=== PATIENT | female | born 1945 | race Caucasian/White ===

== ENCOUNTER 2019-10-21 09:09 | Outpatient (CLI) | payer MEDICARE, SELFPAY ==
[2019-10-21 13:45] LABS: Alanine Aminotransferase 17 U/L (4-35); Albumin Level 4.4 g/dL (3.5-5.1); Alkaline Phosphatase 75 U/L (38-126); Aspartate Amino Transferase 24 U/L (14-36); Bilirubin,Total 0.5 mg/dL (0.2-1.3); Blood Urea Nitrogen 23 mg/dL (7-17); Carbon Dioxide 29 mmol/L (22-30); Chloride 104 mmol/L (98-107); Cholesterol 119 mg/dL (0-200); Estimated Glomerular Filt Rate > 60; Glucose 95 mg/dL (65-105); HDL Direct 60 mg/dL; Potassium 4.5 mmol/L (3.4-5.0); Sodium 141 mmol/L (137-145); Triglycerides 92 mg/dL (<150)
[2019-10-21 13:56] LABS: LDL Cholesterol Direct 58 mg/dL
== END 2019-10-21 09:10 | disposition home or self-care (01) ==
LOC: ANHWCLAB 09:13
PROVIDERS: PCP Internal Medicine; Visit Provider Nurse Practitioner
DX: E78.5 Hyperlipidemia, unspecified (principal)
CPT/HCPCS: 36415; 80053; 80061

== ENCOUNTER → 2019-10-25 14:43 | Outpatient (CLI) | payer MEDICARE, SELFPAY ==
--- NOTE | ~2019-10-25 | CT_ITS ---
EXAMINATION: CT hip LT wo con DATE: 10/25/2019 15:09 INDICATION: Left hip pain. TECHNIQUE: Computed tomography (CT) of the left hip was performed without intravenous contrast. Autom ated exposure control and iterative reconstruction technique were employed. The dose-length product w as 186.30 mGy-cm. COMPARISON: Left hip radiographs 10/15/2019 FINDINGS: Bone alignment is normal. No fracture. There is advanced left hip joint osteoarthritis incl uding flattening of superior aspect of the femoral head. There is a surgical clip in left pelvis. IMPRESSION: 1. Advanced left hip osteoarthritis. Reviewed, dictated and finalized at location A.
== END ==
PROVIDERS: Visit Provider Orthopaedic Surgery
DX: M16.12 Unilateral primary osteoarthritis, left hip (principal)
CPT/HCPCS: 73700

== ENCOUNTER 2020-01-25 13:52 | Outpatient (CLI) | payer MEDICARE, SELFPAY ==
[2020-01-25 15:07] LABS: Basophils Percent Auto 0.5 % (0.2-1.2); Eosinophils Absolute Auto 0.1 K/mm3 (0-0.3); Eosinophils Percent Auto 1.3 % (0-4.4); Hematocrit 43.3 % (37.0-47.0); Hemoglobin 13.9 g/dL (12.0-15.0); Immature Granulocyte Absolute 0.02 K/mm3 (0.00-0.031); Immature Granulocyte Percent A 0.3 % (0-0.5); Lymphocytes Absolute Auto 2.06 K/mm3 (0.9-3.2); Lymphocytes Percent Auto 26.3 % (18.3-44.2); Mean Corpuscular HGB Conc 32.1 g/dl (32-36); Mean Corpuscular Hemoglobin 28.6 pg (26-34); Mean Corpuscular Volume 89.1 fl (80-100); Mean Platelet Volume 8.9 fl (7.4-10.4); Monocytes Absolute Auto 0.5 K/mm3 (0.1-0.6); Monocytes Percent Auto 6.5 % (2.6-8.5); Neutrophils Absolute Auto 5.1 K/mm3 (1.3-6.7); Neutrophils Percent Auto 65.1 % (45.5-73.1); Platelet Count Result 200 k/mm3 (150-375); Red Blood Count 4.86 M/mm3 (4.2-5.4); Red Cell Distribution Width 14.6 % (11.5-14.5); White Blood Count 7.8 K/mm3 (4.5-10.0)
[2020-01-25 15:14] LABS: Prothrombin Time 12.9 Seconds (11.1-14.7)
[2020-01-25 15:15] LABS: Partial Thromboplastin Time 29.2 SECONDS (22.3-36.8)
[2020-01-25 15:16] LABS: Albumin Level 4.8 g/dL (3.5-5.1); Blood Urea Nitrogen 22 mg/dL (7-17); Calcium 9.8 mg/dL (8.4-10.2); Carbon Dioxide 27 mmol/L (22-30); Chloride 104 mmol/L (98-107); Estimated Glomerular Filt Rate 54; Glucose 96 mg/dL (65-105); Potassium 3.7 mmol/L (3.4-5.0); Sodium 137 mmol/L (137-145)
[2020-01-25 15:21] LABS: Urine Cotinine NEGATIVE
[2020-01-25 15:30] LABS: Add Urine Microscopic? YES; Appearance Urine Clear (Clear); Bacteria Urine Trace /hpf; Bilirubin Urine Negative (Negative); Color Urine Yellow (Yellow); Glucose Urine UA Negative (Negative); Ketones Urine Trace mg/dL (Negative); Leukocyte Esterase Ur 1+ LEU/UL (Negative); Mucus Urine Rare /lpf; Nitrate Urine Positive (Negative); Protein Urine 1+ mg/dL (Negative); RBC Urine 0-2 /hpf (0-2); Specific Grav Ur 1.024 (1.001-1.035); Squamous Epithelial Cell Urine Moderate /hpf (Few); Urobilinogen Urine Negative mg/dL (<2.0); WBC Urine 31-50 /hpf
[2020-01-25 15:35] LABS: Blood Urine Negative (Negative)
[2020-01-25 15:53] LABS: Hemoglobin A1C 5.7 % (<5.7)
== END 2020-01-25 13:53 | disposition home or self-care (01) ==
LOC: ANHSURGERY 13:56
PROVIDERS: PCP Internal Medicine; Visit Provider Orthopaedic Surgery
DX: M16.12 Unilateral primary osteoarthritis, left hip (principal); Z01.812 Encounter for preprocedural laboratory examination
CPT/HCPCS: 36415; 80048; 80307; 81001; 82040; 83036; 85025; 85610; 85730; 86850; 86900; 86901; 87077; 87081; 87086; 87088; 87186

== ENCOUNTER 2020-01-31 00:25 | Outpatient (CLI) | payer MEDICARE, SELFPAY ==
[2020-01-31 17:00] LABS: SARS-CoV-2 RNA PCR Negative
== END 2020-01-31 00:26 | disposition home or self-care (01) ==
LOC: ANHCOVIDDT 00:26
PROVIDERS: PCP Internal Medicine; Visit Provider Orthopaedic Surgery
DX: Z01.812 Encounter for preprocedural laboratory examination (principal); Z11.59 Encounter for screening for other viral diseases
CPT/HCPCS: 87635; C9803; U0003

== ENCOUNTER 2020-02-03 14:44 | Inpatient (IN) | payer MEDICARE, SELFPAY ==
[2020-01-25 14:13] VITALS: PULSE 102; TEMP 36.6; O2SAT 98
[2020-01-25 14:15] VITALS: BMI 31.2
[2020-02-02] VITALS (15 sets, daily range): BP systolic 113–161; BP diastolic 52–80; PULSE 79–109; RESP 12–20; TEMP 36.1–36.7; O2SAT 97–100; BMI 37.0
[2020-02-02] MEDS: LACTATED RINGERS 1,000 ML 30 ML IV CONT ×2 (06:30→14:03)
[2020-02-02] MEDS: IBUPROFEN IV 800 MG/200 ML 800 MG/200 ML BAG 400 MG IVPB (06:39)
--- NOTE | 2020-02-02 06:49 | P.PNAN_ITS ---
Anes - Initial Pre Proc Eval Procedure: Operation Date: 02/02/20 07:30 Proposed Procedures p Left Total Hip Arthroplasty - Benton Zuniga MD Date/Time: 02/02/20 06:49 Surgeon: Benton Zuniga MD Pre Op Diagnosis: Left Hip DJD Patient Data Age: 74 Gender: F Height: 1.6 m Weight: 80 kg Last Vital Signs Temp 36.6 C 01/25/20 14:13 Pulse 102 H 01/25/20 14:13 Pulse Ox 98 01/25/20 14:13 Allergies Allergy/AdvReac Type Severity Reaction Status Date / Time cephalexin Allergy Unknown Rash Verified 01/28/20 12:35 Cephalosporins Allergy Unknown RASH Verified 01/28/20 12:35 Home Medications Medication Instructions Recorded Confirmed Type atorvastatin 80 mg tablet 80 mg PO DAILY #90 tablet 08/26/19 01/25/20 Rx calcium carbonate 600 mg(1,500 1 tablet PO DAILY 09/06/19 01/25/20 History mg)-vitamin D3 800 unit chewable tablet prednisolone acetate 1 % eye 1 drop EACH EYE DAILY ml 09/08/19 01/25/20 History drops,suspension cholecalciferol (vitamin D3) 25 mcg PO DAILY 01/25/20 01/25/20 History omega 8-qvv-xia-fish oil [[place]-3] 1 cap PO DAILY 01/25/20 01/25/20 History nitrofurantoin 100 mg PO Q12H PRN 7 Days #14 cap 01/27/20 Rx monohydrate/macrocrystals 100 mg capsule Patient hx anesthesia problems: none Family hx anesthesia problems: none [facility] Social History Social History Smoking status: Never smoker Second hand tobacco smoke exposure: No Alcohol intake: current Anes - Eval Final PreProcedure Day of Procedure 02/02/20 06:49 Patient weight: obese Heart: regular rate and rhythm Lungs: clear to auscultation and normal air movement Airway: Mallampati scale class II Neurological: alert and oriented Last oral intake: >/= 8 hours ASA classification: II Emergent: no Anesthetic plan: proceed Anesthesia type and monitoring: general ETT and standard monitoring Informed Consent: The patient's anesthetic plan and its attendant risks and benefits were discussed with the patient/family/POA. Questions were solicited and answers provided to the satisfaction of the patient/family/POA.
[2020-02-02] MEDS: TRANEXAMIC ACID 1,000MG/ISO100 1,000 MG/100 ML BAG 200 MG IVPB (07:11)
--- NOTE | 2020-02-02 07:31 | WPDHPUPDATE1 ---
History and Physical Update Update Date/Time: 02/02/20 07:31 History and Physical has been reviewed, including an updated exam of the patient. There are NO changes in the patient's condition. Risks, benefits, and alternatives have been discussed and questions answered. Patient agrees to proceed with procedure.
--- NOTE | 2020-02-02 07:32 | SUR.PREOP ---
0700- PT STATED IV SITE WAS BURNING. SLOWED DOWN IV IBUPROFEN. 07- CALLED DR. DUMAS TO SEE IF HE WANTED TO GIVEN ANCEF 2 G OR VANCOMYCIN. HE STATED HE WOULD LIKE PT TO GET A TEST DOSE OF ANCEF 2G. REVIEWED WITH SHARON RAHMAN.
[2020-02-02] MEDS: ceFAZolin 2 GM/D5W 50 ML 2 GM/50 ML BAG IVPB ×2 (07:43→16:26)
[2020-02-02] MEDS: TRANEXAMIC ACID 1,000 MG/10 ML AMPUL 1000 MG IV PUSH (13:20)
[2020-02-02] MEDS: ceFAZolin SODIUM 1 GM VIAL 2 GM IV PUSH (13:38)
--- NOTE | 2020-02-02 14:09 | PM.OP ---
Procedure Note - Brief Procedure Note - Brief Date of procedure: 02/02/20 Pre-op diagnosis: Left Hip DJD Post-op diagnosis: same Procedure performed: L JORGE Anesthesia: GETA Surgeon: Benton Zuniga MD Estimated blood loss (mL): 1,000 Drains: No Complications: Other complications (left greater trochanteric fracture) Condition: stable Disposition: PACU
[2020-02-02 14:24] LABS: Hematocrit 34.8 % (37.0-47.0); Hemoglobin 10.9 g/dL (12.0-15.0)
--- NOTE | 2020-02-02 15:47 | ADMGEN ---
This patient, Gloria Grant, was admitted to 2 Medical Room 248-01. Patient/family oriented to hospital policies and general routines including ID bracelet, bed and alarms, visiting hours, pain management, procedures, bathroom and other care routines, personal items, smoking policy, room service/diet, and visiting hours. Valuables list has been completed. Information on how to activate the Rapid Response Team has been discussed. Patient/Family are encouraged to report perceived risks to care and to ask questions if they do not understand what they are told or what they should do.
[2020-02-02 16:01] LABS: Hematocrit 35.6 % (37.0-47.0); Hemoglobin 11.2 g/dL (12.0-15.0)
[2020-02-02] MEDS: ONDANSETRON INJ 4 MG/2 ML VIAL IV PUSH (16:23)
[2020-02-02] MEDS: SODIUM CHLORIDE 0.9% IV 1,000 ML 125 ML IV CONT (16:23)
[2020-02-02] MEDS: DOCUSATE SODIUM 100 MG CAPSULE PO (17:16)
[2020-02-02] MEDS: PROMETHAZINE HCL 25 MG/ML AMPUL 12.5 MG IV PUSH (17:48)
--- NOTE | 2020-02-02 18:00 | WPDCN ---
Assessment and Plan Assessment and plan (1) Degenerative joint disease of left hip: Qualifiers: Osteoarthritis type: resulting from hip dysplasia Qualified Code(s): M16.32 - Unilateral osteoarthritis resulting from hip dysplasia, left hip Code(s): M16.12 - Unilateral primary osteoarthritis, left hip Status: Acute Assessment and Plan: Postoperative day 0, status post left total hip arthroplasty. Wound care and pain control will be deferred to Dr. Zuniga as well as DVT prophylaxis. Agree with early ambulation and physical therapy. Will monitor hemoglobin and hematocrit given blood loss during surgery. (2) Dyslipidemia: Code(s): E78.5 - Hyperlipidemia, unspecified Status: Acute Assessment and Plan: Continue atorvastatin. Check LFTs in a.m. (3) Osteoporosis: Code(s): M81.0 - Age-related osteoporosis without current pathological fracture Status: Acute Assessment and Plan: Continue calcium and vitamin-D supplements. Additional Plan Thank you for allowing us to participate in this patient's care. Please do not hesitate to contact us with any questions. Supervising physician for this medical consultation is Dr. Perez Manzano. HPI Data of Consult Date/Time: 02/02/20 18:05 Requesting Physician: Benton Zuniga MD Primary Care Provider: Paxton Hadley DO Consult Narrative Narrative: Gloria Grant is a 74-year-old female whom the hospitalist service has been consulted for management of her medical conditions postoperatively. Her medical history is significant for degenerative joint disease, dyslipidemia, and osteoporosis. She has had longstanding pain in her left hip, not amenable to conservative outpatient treatment, and thus she elected for replacement today. Her surgery was performed under general anesthesia complicated by greater trochanteric fracture. Estimated blood loss was 1000 mL. At the time my evaluation she is comfortable and has minimal discomfort. She has been nauseated postoperatively, and has not attempted any of the clear liquids that are in front of her. She denies postoperative fever, chills, chest pain, shortness of breath. No paresthesias, skin color, or temperature changes distal to the surgical site. Review of Systems Review of Systems: Narrative: Twelve systems were reviewed with pertinent positives and negatives as per HPI. No recent cold or flu symptoms. She denies recent travel. No cough or shortness of breath. No sick contacts. No history of venous thromboembolism. Except as documented, all other systems were reviewed and are negative. [facility] Past Medical History Medical History (Updated 02/02/20 @ 18:10 by Senhal Kirk PA-C) Basal cell carcinoma Left nasal ala, nasolabial fold, and upper lip. Chronic otitis media Degenerative joint disease of left hip Dyslipidemia Glaucoma Hearing loss IGT (impaired glucose tolerance) Osteoporosis Surgical History Surgical History (Updated 02/02/20 @ 18:08 by Snehal Kirk PA-C) History of bunionectomy History of carpal tunnel release History of cataract extraction History of dilation and curettage History of laparoscopic cholecystectomy History of lumpectomy History of total left hip arthroplasty (~01/2020) History of trabeculectomy Right eye - 12/21/18. Left eye- 06/21/19. Status post myringotomy with tube placement of both ears On multiple occasions for chronic otitis media. Family History Family History Father Family history of gallbladder disease Mother Family history of malignant neoplasm of breast in first degree
--- NOTE | 2020-02-02 19:28 | OP_ITS ---
DATE OF PROCEDURE: 02/02/2020 PREOPERATIVE DIAGNOSIS: Left hip DJD. POSTOPERATIVE DIAGNOSIS: Left hip DJD. PROCEDURE: Left total hip arthroplasty. ANESTHESIA: General. COMPLICATIONS: Intraoperative greater trochanteric fracture. INDICATIONS: This is a 74-year-old female, who has severe degenerative arthrosis to the left hip and she eventually had so much pain. She was indicated for left total hip arthroplasty. DESCRIPTION OF PROCEDURE: The patient was taken to the operating room in stable condition, placed in supine position. General anesthesia was induced and then the left lower extremity was prepped and draped sterilely. After she was placed in the lateral decubitus, the prep and draping was done from the toes to the iliac crest region. Incision made over the greater trochanter down to the subcutaneous tissues extending slightly posterolaterally. The fascia then was identified and incised. The short external rotators of the hip were identified. The piriformis tendons were identified and the gluteus medius and minimus were also identified, those were retracted until the piriformis tendon was identified and the capsule of the hip joint was identified. The piriformis tendon was incised down to the hip joint capsule and the short external rotators were incised as well down to the lesser trochanter. The hip was dislocated. There was severe arthrosis to both femoral head and acetabulum. An osteotomy was performed approximately 1 cm proximal to the lesser trochanter. The acetabulum was exposed. There was some deficient posterior and superior wall. Sequential reaming then began in approximately 40 degrees of abduction and anteversion was in alignment with the trans-acetabular ligament. Reaming continued until a 49 reamer was used and it bottomed out well in the acetabulum. There was good bleeding bone in the acetabular bed. A trial 49 acetabular component was placed. It fit well. It bottomed out well. There was some minimal about 10% of the posterior superior wall of the acetabulum that was not covered with bone. Once that was performed, then the trial implant was removed and a Biomet G7, 50 mm acetabular component was press-fit. It bottomed out well. There was a good bite. Two screws were placed for extra-stability. The screws had excellent bites each. A polyethylene liner was placed in a 10 degree high wall. Once that was performed, then attention was sought to the femur. First cookie cutter osteotome was used, and then canal finder and then sequential broaching with a taper type style Braid broach. A #5 broach fit well in the femoral canal. A +0 head with a high offset neck then was trialed and that fit well. The hip was reduced, taken through range of motion. There was good stability in all planes. There was no problems with extension of the hip. The leg lengths were found to be grossly equal. The patella was performed. The trial instrumentation was removed and then a Taperloc #5 stem with a high offset neck was tapped into the femur. At that point, a greater trochanteric fracture was noted at the base of the greater trochanter. It was minimally displaced. The implant was removed and it was thought that a cable would be put about the fracture to hold it in place. Once the Taperloc was abandoned, the stump that the patient would benefit from the biometric system that afforded better proximal fill of the femur. So the proximal femur then was reamed with first #7 reamer and then a #8 reamer and then was broached with a 7 broach and then an 8 broach, and the 8 broach filled the proximal femur very nicely. +0 neck, 36 head and a high offset neck were used as trial, the trial then was placed and then the hip was reduced, taken through range of motion found to be very stable. Leg lengths were gr
[2020-02-02 21:53] LABS: Hemoglobin 10.2 g/dL (12.0-15.0)
[2020-02-03] VITALS (7 sets, daily range): BP systolic 109–147; BP diastolic 48–71; PULSE 70–107; RESP 16–20; TEMP 36.4–37.4; O2SAT 95–100
--- NOTE | ~2020-02-03 | XR_ITS ---
EXAMINATION: XR hip LT 1V DATE: 02/02/2020 14:10 INDICATION: Total left hip arthroplasty. Postop. TECHNIQUE: A single view of left hip was obtained. COMPARISON: Left hip radiographs 10/15/2017 FINDINGS: There is a total left hip arthroplasty in near-anatomic alignment. There is a cable around the proximal femur. There is severe right hip osteoarthritis. There is severe lumbar spondylosis. A s urgical clip overlies the pelvis. IMPRESSION: 1. Total left hip arthroplasty in near-anatomic alignment. Reviewed, dictated and finalized at location A.
--- NOTE | ~2020-02-03 | XR_ITS ---
EXAMINATION: XR surgery orthopedic DATE: 02/02/2020 09:58 INDICATION: Total left hip arthroplasty. TECHNIQUE: 3 intraoperative views of left hip were obtained. COMPARISON: Left hip radiographs 01/20/2020 FINDINGS: There are changes of resection of the left femoral head and neck. There is a left acetabula r cup in expected position. No fracture. A surgical clip overlies the pelvis. IMPRESSION: 1. Total left hip arthroplasty in progress. Reviewed, dictated and finalized at location A.
[2020-02-03] MEDS: ceFAZolin 2 GM/D5W 50 ML 2 GM/50 ML BAG IVPB ×2 (00:16→10:23)
[2020-02-03] MEDS: MORPHINE SULFATE 4 MG/ML INJ 3 MG IV PUSH (00:27)
[2020-02-03 05:58] LABS: Basophils Percent Auto 0.1 % (0.2-1.2); Hematocrit 28.6 % (37.0-47.0); Immature Granulocyte Absolute 0.07 K/mm3 (0.00-0.031); Immature Granulocyte Percent A 0.7 % (0-0.5); Lymphocytes Absolute Auto 1.74 K/mm3 (0.9-3.2); Lymphocytes Percent Auto 16.5 % (18.3-44.2); Mean Corpuscular HGB Conc 31.5 g/dl (32-36); Mean Corpuscular Hemoglobin 28.5 pg (26-34); Mean Corpuscular Volume 90.5 fl (80-100); Mean Platelet Volume 9.2 fl (7.4-10.4); Monocytes Absolute Auto 0.9 K/mm3 (0.1-0.6); Monocytes Percent Auto 8.6 % (2.6-8.5); Neutrophils Absolute Auto 7.8 K/mm3 (1.3-6.7); Neutrophils Percent Auto 74.1 % (45.5-73.1); Platelet Count Result 163 k/mm3 (150-375); Red Blood Count 3.16 M/mm3 (4.2-5.4); Red Cell Distribution Width 14.3 % (11.5-14.5); White Blood Count 10.5 K/mm3 (4.5-10.0)
[2020-02-03 06:11] LABS: Alanine Aminotransferase 12 U/L (4-35); Alkaline Phosphatase 46 U/L (38-126); Aspartate Amino Transferase 25 U/L (14-36); Bilirubin,Total 0.2 mg/dL (0.2-1.3); Blood Urea Nitrogen 17 mg/dL (7-17); Calcium 7.8 mg/dL (8.4-10.2); Carbon Dioxide 28 mmol/L (22-30); Chloride 104 mmol/L (98-107); Estimated CRCL calculation 60 ml/min; Estimated Glomerular Filt Rate > 60; Glucose 154 mg/dL (65-105); Potassium 3.9 mmol/L (3.4-5.0); Sodium 137 mmol/L (137-145)
[2020-02-03] MEDS: ATORVASTATIN 40 MG TABLET 80 MG PO (08:43)
[2020-02-03] MEDS: ASPIRIN 325 MG ENTERIC TABLET 650 MG PO (08:43)
[2020-02-03] MEDS: CHOLECALCIFEROL 1,000 UNIT TABLET 1000 UNITS PO (08:44)
[2020-02-03] MEDS: CELECOXIB 200 MG CAPSULE PO (08:44)
[2020-02-03] MEDS: DOCUSATE SODIUM 100 MG CAPSULE PO ×2 (08:44→17:10)
--- NOTE | 2020-02-03 08:47 | PM.PNORT ---
Progress Note: A&P Assessment and Plan (1) S/P total hip arthroplasty: Qualifiers: Laterality: left Qualified Code(s): Z96.642 - Presence of left artificial hip joint Code(s): Z96.649 - Presence of unspecified artificial hip joint Status: Acute Assessment and Plan: POD #1: LEFT JORGE Continue PT/OT. TTWB. Walker for ambulation. Fall Risk. Continue DVT prophylaxis with Aspirin. Incentive Spriometry. SCDs. Monitor dressing, change POD #2. Remove Vicente Catheter. Strict I&Os. Dispo: Home with Home Health pending PT/OT progress. (2) Degenerative joint disease of left hip: Qualifiers: Osteoarthritis type: resulting from hip dysplasia Qualified Code(s): M16.32 - Unilateral osteoarthritis resulting from hip dysplasia, left hip Code(s): M16.12 - Unilateral primary osteoarthritis, left hip Status: Acute Assessment and Plan: s/p left JORGE. Follow JORGE precautions. No ambulation without walker. TTWB. Subjective Subjective Date/Time Seen: 02/03/20 08:47 Post Op day: 1 Principal diagnosis: Left Hip DJD Interval history: POD #1: Left JORGE Patient reports pain well-controlled. Mild left hip discomfort. Vicente Catheter still in place. Toelrating food well. Review of Systems Constitutional: Constitutional: Denies chills, Denies fatigue and Denies fever(s) Cardiovascular: Cardiovascular: Denies chest pain, Denies diaphoresis, Denies pedal edema, Denies leg edema and Denies lightheadedness Respiratory: Respiratory: Denies cough and Denies dyspnea Gastrointestinal: Gastrointestinal: Denies abdominal pain, Denies nausea and Denies vomiting Genitourinary: Comments: Vicente Catheter Musculoskeletal: Musculoskeletal: Reports as per HPI, Reports abnormal gait (Antalgic ), Reports arthralgias (Left Hip ) and Reports joint swelling (Left Hip ) Exam Const: General: comfortable and no acute distress Resp: Effort & Inspection: normal respiratory effort Cardio: Rate: regular rate Rhythm: regular rhythm GI: GI Palp: No abdominal tenderness, Yes Soft to palpation, No Tenderness to palpation present (GI) and No Guarding due to palpation present (GI) Urinary Catheter: Urinary Catheter: patent and draining and urine clear Skin: General skin exam: normal color and no erythema Wounds: wounds noted (Left Lateral Hip Incision. Dressing c/d/i. ) Neuro: General: No gait normal (antalgic- requiring walker ) Cognition (Neuro): normal cognition Motor exam (neuro): Abnormal motor strength present (decreased LLE ) Extrem: Right lower extremity: normal to inspection, full ROM and normal capillary refill Left lower extremity: normal capillary refill, hip/thigh Details: tenderness Location: of the hip Location: laterally, swelling Location: of the hip (mild ), abnormal ROM (ROM limited due to recent JORGE ) and ecchymosis (mild left hip (no evidence of hematoma) ); no unusual warmth, knee Details: normal to inspection and normal ROM; no tenderness and no swelling, lower leg Details: normal to inspection and no edema; no tenderness and no localized swelling, ankle (+ankle dorsiflexion/plantarflexion ) Details: no edema and normal ROM; no tenderness and no swelling and foot Details: vascular exam Details: dorsalis pedis pulse present and posterior tibial pulse present, tendon exam active flexion normal and active extension normal and motor-sensory exam two point discrimination normal and light-touch normal; no edema Psych: Mental Status: mental status grossly normal Affect: normal affect Objective Data Vital Signs Vital Signs: Vital Signs - 24 hr 02/02/20 14:04 02/02/20 14:19 02/02/20 14:29 Temperature 36.2 C L Pulse Rate 86 93 95 Respiratory Rate 13 14 18 Blood Pressure 113/55 L 123/58 L 132/53 L Pulse Oximetry 100 100 100 02/02/20 14:45 02/02/20 15:00 02/02/20 15:15 Temperature Pulse Rate 90 89 87 Respiratory Rate 12 12 20 Blood Pressure 125/53 L 138/54 L 132/61 Pulse Ox
--- NOTE | 2020-02-03 09:41 | P.PNAN_ITS ---
Anes - Prog Note Post-Op Date/Time: 02/03/20 09:41 Cardiovascular status: normal Respiratory status: normal Airway patency: baseline Mental status: baseline Post-Op hydration status: normal Vital Signs: Last Vital Signs Temp 36.4 C 02/03/20 05:58 Pulse 70 02/03/20 05:58 Resp 20 02/03/20 05:58 BP 134/48 L 02/03/20 05:58 Pulse Ox 95 02/03/20 05:58 I/O: Intake & Output 02/02/20 02/03/20 02/03/20 23:59 07:59 15:59 Intake Total 190 1240 480 Output Total 150 600 Balance 40 640 480 Laboratory Tests 02/03/20 05:24 02/03/20 05:24 02/02/20 02/02/20 02/02/20 14:20 15:57 21:48 WBC RBC Hgb 10.9 L D 11.2 L 10.2 L Hct 34.8 L 35.6 L 33.0 L MCV MCH MCHC RDW Plt Count MPV Immature Gran % (Auto) Neut % (Auto) Lymph % (Auto) Blount % (Auto) Eos % (Auto) Baso % (Auto) Lymph # (Auto) Blount # (Auto) Eos # (Auto) Baso # (Auto) Abs Immat Gran (auto) Absolute Neuts (auto) Absolute Nucleated RBC Nucleated RBC % Sodium Potassium Chloride Carbon Dioxide BUN Creatinine Estim Creat Clear Calc Estimated GFR Glucose Calcium Total Bilirubin Direct Bilirubin AST ALT Alkaline Phosphatase Total Protein Albumin 02/03/20 02/03/20 05:24 05:24 WBC 10.5 H RBC 3.16 L Hgb 9.0 L Hct 28.6 L MCV 90.5 MCH 28.5 MCHC 31.5 L RDW 14.3 Plt Count 163 MPV 9.2 Immature Gran % (Auto) 0.7 H Neut % (Auto) 74.1 H Lymph % (Auto) 16.5 L Blount % (Auto) 8.6 H Eos % (Auto) 0.0 Baso % (Auto) 0.1 L Lymph # (Auto) 1.74 Blount # (Auto) 0.9 H Eos # (Auto) 0.0 Baso # (Auto) 0.0 Abs Immat Gran (auto) 0.07 H Absolute Neuts (auto) 7.8 H Absolute Nucleated RBC 0.0 Nucleated RBC % 0.0 Sodium 137 Potassium 3.9 Chloride 104 Carbon Dioxide 28 BUN 17 Creatinine 0.80 Estim Creat Clear Calc 60 Estimated GFR > 60 Glucose 154 H Calcium 7.8 L Total Bilirubin 0.2 Direct Bilirubin 0.0 AST 25 ALT 12 Alkaline Phosphatase 46 Total Protein 5.0 L Albumin 3.0 L Post-procedural complaints: none Patient Feedback: Patient satisfied with anesthetic care.
--- NOTE | 2020-02-03 12:20 | PM.IMPN ---
Progress Note: A&P Assessment and Plan (1) Degenerative joint disease of left hip: Qualifiers: Osteoarthritis type: resulting from hip dysplasia Qualified Code(s): M16.32 - Unilateral osteoarthritis resulting from hip dysplasia, left hip Code(s): M16.12 - Unilateral primary osteoarthritis, left hip Status: Acute Assessment and Plan: POD#1 s/p left total hip arthroplasty by Dr Zuniga. Wound care, pain control, and DVT prophylaxis per the primary service. Monitor H&H tomorrow. (2) Dyslipidemia: Code(s): E78.5 - Hyperlipidemia, unspecified Status: Acute Assessment and Plan: Maintained on her home statin therapy. LFTs within normal limits. (3) Osteoporosis: Qualifiers: Osteoporosis type: age-related Presence of current pathological fracture: unspecified Qualified Code(s): M81.0 - Age-related osteoporosis without current pathological fracture Code(s): M81.0 - Age-related osteoporosis without current pathological fracture Status: Acute Assessment and Plan: Continue calcium and vitamin-D supplements. Additional Plan Thank you for allowing me to participate in this patient's care. Will check H&H in AM and follow with you while she is here. Subjective Date/time seen: 02/03/20 1220 Interval history: Ms. Grant is a pleasant 74yo F admitted after left total hip arthroplasty by Dr Zuniga. She is feeling well today and rates her left hip pain at 6/10 at time of my exam. She has tolerated oral intake today without nausea or vomiting. She denies chest pain or shortness of breath. Review of Systems Review of Systems: Narrative: Twelve systems were reviewed with pertinent positives and negatives as per HPI. Exam Narrative: Exam Narrative: General: Female resting sitting up in bedside chair in no acute distress. HEENT: Normocephalic, EOMI, oral mucosa moist. Cardiovascular: Rate and rhythm are regular. Respiratory: Lungs clear to auscultation all ford. Non-labored breathing. Abdomen: Soft, non-tender, non-distended, bowel sounds present. Extremities: Peripheral pulses intact. Left hip mepilex intact. Left lower extremity is neurovascularly intact distal to the surgical site. Neuro: No focal neurological deficits. Speech is clear. Objective Data Vital Signs Vital Signs: Last Vital Signs Temp 98.0 F 02/03/20 10:00 Pulse 107 H 02/03/20 10:00 Resp 16 02/03/20 10:00 BP 109/52 L 02/03/20 10:00 Pulse Ox 98 02/03/20 10:00 Intake/Output Intake/Output: Intake & Output 01/31/20 02/01/20 02/02/20 02/03/20 23:59 23:59 23:59 23:59 Intake Total 540 1720 Output Total 320 600 Balance 220 1120 Meds/Results Medications: Active Medications Generic Name Dose Route Start Last Admin Trade Name Freq PRN Reason Stop Dose Admin Acetaminophen 650 mg 02/02/20 15:41 Tylenol Tablet PO Q6H PRN Mild Pain (1-3) or Fever Hydrocodone Bitart/Acetaminophen 1 tab 02/02/20 15:41 02/03/20 09:03 [place] 7.5-325 Mg PO 1 tab Q3H PRN Administration Pain Rated 4-6 Aspirin 650 mg 02/03/20 09:00 02/03/20 08:43 Aspirin Ec PO 650 mg DAILY ERNIE Administration Atorvastatin Calcium 80 mg 02/03/20 09:00 02/03/20 08:43 Lipitor PO 80 mg DAILY ERNIE Administration Calcium Carbonate 500 mg 02/03/20 09:00 02/03/20 08:43 [place] 500 +D Tablet PO 500 mg QAM ERNIE Administration Celecoxib 200 mg 02/03/20 09:00 02/03/20 08:44 Celebrex PO 200 mg DAILY ERNIE Administration Diazepam 5 mg 02/02/20 15:41 Valium Po PO Q6H PRN Anxiety/Muscle Spasm Docusate Sodium 100 mg 02/02/20 17:00 02/03/20 08:44 Colace Capsule PO 100 mg BID ERNIE Administration Magnesium Hydroxide 30 ml 02/02/20 15:41 Milk Of Magnesia PO BID PRN Constipation
[2020-02-04] VITALS (8 sets, daily range): BP systolic 124–150; BP diastolic 49–62; PULSE 88–105; RESP 18–20; TEMP 36.7–37.5; O2SAT 98–100
[2020-02-04 05:44] LABS: Hematocrit 23.8 % (37.0-47.0); Hemoglobin 7.7 g/dL (12.0-15.0)
[2020-02-04] MEDS: CELECOXIB 200 MG CAPSULE PO (09:23)
[2020-02-04] MEDS: ATORVASTATIN 40 MG TABLET 80 MG PO (09:23)
[2020-02-04] MEDS: ASPIRIN 325 MG ENTERIC TABLET 650 MG PO (09:23)
[2020-02-04] MEDS: CHOLECALCIFEROL 1,000 UNIT TABLET 1000 UNITS PO (09:24)
[2020-02-04] MEDS: DOCUSATE SODIUM 100 MG CAPSULE PO ×2 (09:30→17:34)
--- NOTE | 2020-02-04 09:35 | PM.IMPN ---
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 Wound care, pain control, and DVT prophylaxis per the primary service. Asymptomatic postoperative anemia. Ordered for repeat CBC 1 week after discharge with results to Dr Hadley's office. Discharge dispo is SNF now. (2) Dyslipidemia: Code(s): E78.5 - Hyperlipidemia, unspecified Status: Acute Assessment and Plan: Maintained on her home statin therapy. LFTs within normal limits. (3) Osteoporosis: Qualifiers: Osteoporosis type: age-related Presence of current pathological fracture: unspecified Qualified Code(s): M81.0 - Age-related osteoporosis without current pathological fracture Code(s): M81.0 - Age-related osteoporosis without current pathological fracture Status: Acute Assessment and Plan: Continue calcium and vitamin-D supplements. Additional Plan Thank you for allowing me to participate in the care of this pleasant patient. She is medically stable for discharge today from hospitalist standpoint. I added a repeat CBC for 1 week after discharge to monitor Hgb. Subjective Date/time seen: 02/04/20 0900 Interval history: Ms. Grant is a pleasant 74yo F admitted after left total hip arthroplasty by Dr Zuniga. She is feeling well today and rates her left hip pain at 7/10 at time of my exam. She has tolerated some breakfast this morning without nausea or vomiting. She denies chest pain or shortness of breath. Review of Systems Review of Systems: Narrative: Twelve systems were reviewed with pertinent positives and negatives as per HPI. Exam Narrative: Exam Narrative: General: Female resting sitting up in bedside chair in no acute distress. HEENT: Normocephalic, EOMI, oral mucosa moist. Cardiovascular: Rate and rhythm are regular. Respiratory: Lungs clear to auscultation all ford. Non-labored breathing. Abdomen: Soft, non-tender, non-distended, bowel sounds present. Extremities: Peripheral pulses intact. Left hip mepilex intact. Left lower extremity is neurovascularly intact distal to the surgical site. Neuro: No focal neurological deficits. Speech is clear. Objective Data Vital Signs Vital Signs: Last Vital Signs Temp 98.8 F 02/04/20 05:57 Pulse 105 H 02/04/20 05:57 Resp 20 02/04/20 05:57 BP 147/49 H 02/04/20 05:57 Pulse Ox 99 02/04/20 05:57 Intake/Output Intake/Output: Intake & Output 02/01/20 02/02/20 02/03/20 02/04/20 23:59 23:59 23:59 23:59 Intake Total 540 2850 1840 Output Total 320 1025 1525 Balance 220 1825 315 Meds/Results Medications: Active Medications Generic Name Dose Route Start Last Admin Trade Name Freq PRN Reason Stop Dose Admin Acetaminophen 650 mg 02/02/20 15:41 Tylenol Tablet PO Q6H PRN Mild Pain (1-3) or Fever Hydrocodone Bitart/Acetaminophen 1 tab 02/02/20 15:41 02/04/20 09:30 Adrian 7.5-325 Mg PO 1 tab Q3H PRN Administration Pain Rated 4-6 Aspirin 650 mg 02/03/20 09:00 02/04/20 09:23 Aspirin Ec PO 650 mg DAILY ERNIE Administration Atorvastatin Calcium 80 mg 02/03/20 09:00 02/04/20 09:23 Lipitor PO 80 mg DAILY ERNIE Administration Calcium Carbonate 500 mg 02/03/20 09:00 02/04/20 09:23 Os-Cheikh 500 +D Tablet PO 500 mg QAM ERNIE Administration Celecoxib 200 mg 02/03/20 09:00 02/04/20 09:23 Celebrex PO 200 mg DAILY ERNIE Administration Diazepam 5 mg 02/02/20 15:41 Valium Po PO Q6H PRN A
--- NOTE | 2020-02-04 09:59 | PM.PNORT ---
Progress Note: A&P Assessment and Plan (1) S/P total hip arthroplasty: Qualifiers: Laterality: left Qualified Code(s): Z96.642 - Presence of left artificial hip joint Code(s): Z96.649 - Presence of unspecified artificial hip joint Status: Acute Assessment and Plan: POD #2: LEFT JORGE complicated by intraoperative greater trochanteric fracture HgB 7.7 today. Appreciate medicine recommendations. Continue PT/OT. TTWB. Walker for ambulation. Fall Risk. Continue DVT prophylaxis with Aspirin. Incentive Spriometry. SCDs. Monitor dressing, change today. Patient with concerns regarding going home due to TTWB restrictions. Patient lives home alone. PT/OT to evaluate for possible TRC placement. TRC consult initiated. 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 Follow JORGE precautions. No ambulation without walker. TTWB. Subjective Subjective Date/Time Seen: 02/04/20 0830 POD #2: LEFT JORGE No new complaints. Urinating without cotto catheter. Pain well controlled. Worried about going home as she lives alone. Would like to consider rehab Review of Systems Constitutional: Constitutional: Denies chills, Denies fatigue and Denies fever(s) Cardiovascular: Cardiovascular: Denies chest pain, Denies diaphoresis, Denies pedal edema, Denies leg edema and Denies lightheadedness Respiratory: Respiratory: Denies cough and Denies dyspnea Gastrointestinal: Gastrointestinal: Denies abdominal pain, Denies nausea and Denies vomiting Genitourinary: Comments: Cotto Catheter Musculoskeletal: Musculoskeletal: Reports as per HPI, Reports abnormal gait (Antalgic ), Reports arthralgias (Left Hip ) and Reports joint swelling (Left Hip ) Exam Const: General: comfortable and no acute distress Resp: Effort & Inspection: normal respiratory effort Cardio: Rate: regular rate Rhythm: regular rhythm GI: GI Palp: No abdominal tenderness, Yes Soft to palpation, No Tenderness to palpation present (GI) and No Guarding due to palpation present (GI) Urinary Catheter: Urinary Catheter: patent and draining and urine clear Skin: General skin exam: normal color and no erythema Wounds: wounds noted (Left Lateral Hip Incision. Dressing c/d/i. ) Neuro: General: No gait normal (antalgic- requiring walker ) Cognition (Neuro): normal cognition Motor exam (neuro): Abnormal motor strength present (decreased LLE ) Extrem: Right lower extremity: normal to inspection, full ROM and normal capillary refill Left lower extremity: normal capillary refill, hip/thigh Details: tenderness Location: of the hip Location: laterally, swelling Location: of the hip (mild ), abnormal ROM (ROM limited due to recent JORGE ) and ecchymosis (mild left hip (no evidence of hematoma) ); no unusual warmth, knee Details: normal to inspection and normal ROM; no tenderness and no swelling, lower leg Details: normal to inspection and no edema; no tenderness and no localized swelling, ankle (+ankle dorsiflexion/plantarflexion ) Details: no edema and normal ROM; no tenderness and no swelling and foot Details: vascular exam Details: dorsalis pedis pulse present and posterior tibial pulse present, tendon exam active flexion normal and active extension normal and motor-sensory exam two point discrimination normal and light-touch normal; no edema Psych: Mental Status: mental status grossly normal Affect: normal affect Objective Data Vital Signs Vital Signs: Vital Signs - 24 hr 02/03/20 10:00 02/03/20 14:00 02/03/20 18:00 Temperature 36.7 C 37.3 C 37.2 C Pulse Rate 107 H 91 105 H Respiratory Rate 16 18 16 Blood Pressure 109/52 L 128/54 L 112/71 Pulse Oximetry 9
--- NOTE | 2020-02-04 11:33 | PC.NURSE ---
Updated patient's daughter Nancy via telephone on plan of care and discharge planning for possible rehab therapy in [facility]. All questions and concerns answered at this time.
[2020-02-05 02:00] VITALS: BP 142/55; PULSE 97; RESP 20; TEMP 36.6; O2SAT 99
[2020-02-05 06:00] VITALS: BP 128/61; PULSE 92; RESP 21; TEMP 37.1; O2SAT 100
[2020-02-05 06:02] LABS: Basophils Percent Auto 0.4 % (0.2-1.2); Eosinophils Absolute Auto 0.1 K/mm3 (0-0.3); Hematocrit 23.1 % (37.0-47.0); Hemoglobin 7.1 g/dL (12.0-15.0); Immature Granulocyte Absolute 0.02 K/mm3 (0.00-0.031); Immature Granulocyte Percent A 0.3 % (0-0.5); Lymphocytes Absolute Auto 1.56 K/mm3 (0.9-3.2); Lymphocytes Percent Auto 22.4 % (18.3-44.2); Mean Corpuscular HGB Conc 30.7 g/dl (32-36); Mean Corpuscular Hemoglobin 27.6 pg (26-34); Mean Corpuscular Volume 89.9 fl (80-100); Mean Platelet Volume 9.2 fl (7.4-10.4); Monocytes Absolute Auto 0.5 K/mm3 (0.1-0.6); Monocytes Percent Auto 6.5 % (2.6-8.5); Neutrophils Absolute Auto 4.8 K/mm3 (1.3-6.7); Neutrophils Percent Auto 68.4 % (45.5-73.1); Platelet Count Result 134 k/mm3 (150-375); Red Blood Count 2.57 M/mm3 (4.2-5.4); Red Cell Distribution Width 14.6 % (11.5-14.5)
[2020-02-05 09:21] VITALS: O2SAT 100
[2020-02-05] MEDS: DOCUSATE SODIUM 100 MG CAPSULE PO (09:27)
[2020-02-05] MEDS: ASPIRIN 325 MG ENTERIC TABLET 650 MG PO (09:27)
[2020-02-05] MEDS: CHOLECALCIFEROL 1,000 UNIT TABLET 1000 UNITS PO (09:28)
[2020-02-05] MEDS: ATORVASTATIN 40 MG TABLET 80 MG PO (09:28)
[2020-02-05] MEDS: CELECOXIB 200 MG CAPSULE PO (09:28)
[2020-02-05 10:06] VITALS: BP 131/49; PULSE 100; RESP 18; TEMP 37.4; O2SAT 99
[2020-02-05] MEDS: MAGNESIUM HYDROXIDE SUSP 30 ML UDC PO (11:17)
--- NOTE | 2020-02-05 12:15 | PM.PNORT ---
Progress Note: A&P Additional Plan POD 3 DOING NWELL. SHE HAS NO PULMONARY OR CARDIAC SYMPTOMS. OK TO DC TO [facility]. RECOMMEND CBC ON TUESDAY 02/06 Subjective Subjective Date/Time Seen: 02/05/20 12:15 POD 3 DOING WELL. SHE HAS NO SOB OR CHEST PAIN WALKING WELL WITH PT NWB LEFT LEF. NO CALF PAIN Exam Extrem: Other: VSS AFEBRILE DRESSING DRY NV INTACT CALF SOFT NON TENDER NEG HOMANS SIGN Objective Data Vital Signs Vital Signs: Vital Signs - 24 hr 02/04/20 14:00 02/04/20 18:00 02/04/20 22:00 Temperature 37.5 C 36.7 C 36.9 C Pulse Rate 96 104 H 105 H Respiratory Rate 18 18 20 Blood Pressure 133/51 L 124/62 136/58 L Pulse Oximetry 98 98 99 02/05/20 02:00 02/05/20 06:00 02/05/20 09:21 Temperature 36.6 C 37.1 C Pulse Rate 97 92 Respiratory Rate 20 21 H Blood Pressure 142/55 H 128/61 Pulse Oximetry 99 100 100 02/05/20 10:06 Temperature 37.4 C Pulse Rate 100 Respiratory Rate 18 Blood Pressure 131/49 L Pulse Oximetry 99 Intake/Output Intake/Output: Intake & Output 02/02/20 02/03/20 02/04/20 02/05/20 23:59 23:59 23:59 23:59 Intake Total 540 2850 2945 1060 Output Total 320 1025 2025 900 Balance 220 1825 920 160 Meds/Results Medications: Active Medications Generic Name Dose Route Start Last Admin Trade Name Freq PRN Reason Stop Dose Admin Acetaminophen 650 mg 02/02/20 15:41 Tylenol Tablet PO Q6H PRN Mild Pain (1-3) or Fever Hydrocodone Bitart/Acetaminophen 1 tab 02/02/20 15:41 02/05/20 09:28 Amalia 7.5-325 Mg PO 1 tab Q3H PRN Administration Pain Rated 4-6 Aspirin 650 mg 02/03/20 09:00 02/05/20 09:27 Aspirin Ec PO 650 mg DAILY ERNIE Administration Atorvastatin Calcium 80 mg 02/03/20 09:00 02/05/20 09:28 Lipitor PO 80 mg DAILY ERNIE Administration Calcium Carbonate 500 mg 02/03/20 09:00 02/05/20 09:28 Os-Cheikh 500 +D Tablet PO 500 mg QAM ERNIE Administration Celecoxib 200 mg 02/03/20 09:00 02/05/20 09:28 Celebrex PO 200 mg DAILY ERNIE Administration Diazepam 5 mg 02/02/20 15:41 Valium Po PO Q6H PRN Anxiety/Muscle Spasm Docusate Sodium 100 mg 02/02/20 17:00 02/05/20 09:27 Colace Capsule PO 100 mg BID ERNIE Administration Magnesium Hydroxide 30 ml 02/02/20 15:41 02/05/20 11:17 Milk Of Magnesia PO 30 ml BID PRN Administration Constipation Morphine Sulfate 3 mg 02/02/20 15:41 02/03/20 00:27 Morphine Sulfate Inj IV PUSH 3 mg Q3H PRN Administration Pain Rated 7-10 Naloxone HCl 0.1 mg 02/02/20 15:41 Narcan IV PUSH Q2M PRN Opiate Reversal Ondansetron HCl 4 mg 02/02/20 15:41 02/02/20 16:23 Zofran Inj IV PUSH 4 mg Q4H PRN Administration Nausea And Vomiting Oxycodone/Acetaminophen 2 tablet 02/02/20 15:41 Percocet 5-325 Mg PO Q4H PRN Breakthrough Pain Prednisolone Acetate 1 drop 02/03/20 09:00 02/05/20 09:28 Pred Forte EACH EYE 1 drop DAILY ERNIE Administration Promethazine HCl 12.5 mg 02/02/20 17:40 02/02/20 17:48 Phenergan Inj IV PUSH 12.5 mg Q4H PRN Administration Nausea And Vomiting Vitamin D 1,000 unit 02/03/20 09:00 02/05/20 09:28 Vitamin D PO 1,000 unit DAILY ERNIE Administration Radiology Results: ITS Impressions Intraoperative X-Ray 02/02/20 10:15 IMPRESSION: 1. Total left hip arthroplasty in progress. Hip X-Ray 02/02/20 14:11 IMPRESSION: 1. Total left hip arthroplasty in near-anatomic alignment. Labs Labs: Laboratory Results - last 24 hr 02/05/20 05:36 WBC 7.0 RBC 2.57 L Hgb 7.1 L Hct 23.1 L MCV 89.9 MCH 27.6 MCHC 30.7 L RDW 14.6 H Plt Count 134 L MPV 9.2 Immature Gran % (Auto) 0.3 Neut % (Auto) 68.4 Lymph % (Auto) 22.4 [place] % (Auto) 6.5 Eos % (Auto) 2.0 Baso % (Auto) 0.4 Lymph # (Auto) 1.56 [place] # (Auto) 0.5 Eos # (Auto) 0.1 Baso # (Auto) 0.0 Abs Immat Gran (auto) 0.02 Absolute Neuts (auto) 4.8 Absol
--- NOTE | 2020-02-05 12:19 | PM.DS ---
DS: Admitting Diagnosis Admitting Diagnosis Admitting Diagnosis: Encounter for observation for suspected exposure to other biological agents ruled out DS: Discharge Diagnosis Discharge Diagnosis (1) S/P total hip arthroplasty: Qualifiers: Laterality: left Qualified Code(s): Z96.642 - Presence of left artificial hip joint Code(s): Z96.649 - Presence of unspecified artificial hip joint Status: Acute (2) History of total left hip arthroplasty: Onset Date: ~01/2020 Code(s): Z96.642 - Presence of left artificial hip joint Status: Acute DS: Summary Time Spent with Patient Time attestation: Total time spent providing and/or coordinating discharge services: DS: Data Data Completed and Pending Labs on day of discharge: Labs from last 24 hours 02/05/20 05:36 WBC 7.0 RBC 2.57 L Hgb 7.1 L Hct 23.1 L MCV 89.9 MCH 27.6 MCHC 30.7 L RDW 14.6 H Plt Count 134 L MPV 9.2 Immature Gran % (Auto) 0.3 Neut % (Auto) 68.4 Lymph % (Auto) 22.4 [place] % (Auto) 6.5 Eos % (Auto) 2.0 Baso % (Auto) 0.4 Lymph # (Auto) 1.56 [place] # (Auto) 0.5 Eos # (Auto) 0.1 Baso # (Auto) 0.0 Abs Immat Gran (auto) 0.02 Absolute Neuts (auto) 4.8 Absolute Nucleated RBC 0.0 Nucleated RBC % 0.0 Discharge Plan Discharge Attending physician on discharge: Benton Zuniga Consulting providers: Akilah Cortez ; Perze Manzano Discharging Clinician: Josie Rodriguez Anticipated Discharge Date/Time: 02/05/20 11:00 Patient Disposition: SNF Activity: may shower, no driving and follow weight bearing status Diet: as tolerated Wound Care Instructions: follow printed instructions Discharge Instructions: Total Hip Replacement Instruction Dr. Benton Zuniga Continue to follow JORGE precautions. Toe Touch Weight Bearing LEFT lower extremity Your dressing will be changed prior to your discharge. You will be sent with one additional dressing to be changed in 5 days by the SNF RN. [place] to be removed on the 14th day after surgery. No driving. May shower, no bathing. Walk with a walker at all times. Follow up as scheduled. Hospitalist Discharge Instructions: Repeat lab work in 1 week to check hemoglobin and follow up with your primary care provider. per Care Coordination: Home with [facility]: PT/OT Evaluations and Treatments, RN. [facility] will call you to arrange a visit time. Please call them at [phone] if you have not heard from them within 72 hours of discharge. Patient Instructions: Antibiotic Form, Aspirin (By mouth), Pain Management (DC), Precautions after Total Joint Replacement Surgery (ED), Joint Replacement Surgery (DC), Total Hip Replacement (DC) Stand Alone Forms: General Discharge Information Follow-up/Referrals: Benton Zuniga MD [Physician] - 02/24/20 2:30 pm Discharge Medications: New hydrocodone-acetaminophen [[place]] 5-325 mg tablet 1 tablet PO Q6H PRN (Reason: pain) Qty: 60 RF: 0 aspirin 325 mg Tablet,Delayed Release (Dr/Ec) 650 mg PO DAILY 14 Days Qty: 28 RF: 0 Continued Caltrate 600 plus D 600 mg (1,500 mg)-800 unit tablet,chewable 1 tablet PO DAILY RF: 0 prednisolone acetate 1 % drops,suspension 1 drop RIGHTEYE BID RF: 0 cholecalciferol (vitamin D3) 25 mcg (1,000 unit) Capsule 25 mcg PO DAILY RF: 0 [place]-3 350 mg-235 mg- 90 mg-597 mg Capsule,Delayed Release(Dr/Ec) 1 cap PO DAILY RF: 0 atorvastatin 80 mg tablet 80 mg PO DAILY Qty: 90 RF: 1 Other Ambulatory Orders: Complete Blood Count no Diff (Routine) Timeframe: 1 Week Location: Determined by Patient Ordered By: Akilah Cortez Date of admission: 02/03/20 14:44 Primary Care Provider: Paxton Hadley Admitting Provider: Benton Zuniga Attending physician on admission: Benton Zuniga Quality VTE Prophylaxis VTE prophylaxis: pharmacologic ordered (Per primary service)
--- NOTE | 2020-02-05 12:35 | PM.IMPN ---
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 Wound care, pain control, and DVT prophylaxis per the primary service. Asymptomatic postoperative anemia. Ordered for repeat CBC 1 week after discharge with results to Dr Hadley's office. Discharge dispo is SNF. (2) Dyslipidemia: Code(s): E78.5 - Hyperlipidemia, unspecified Status: Acute Assessment and Plan: Maintained on her home statin therapy. LFTs within normal limits. (3) Osteoporosis: Qualifiers: Osteoporosis type: age-related Presence of current pathological fracture: unspecified Qualified Code(s): M81.0 - Age-related osteoporosis without current pathological fracture Code(s): M81.0 - Age-related osteoporosis without current pathological fracture Status: Acute Assessment and Plan: Continue calcium and vitamin-D supplements. Additional Plan Thank you for allowing me to participate in the care of this pleasant patient. She is medically stable for discharge today from hospitalist standpoint. I added a repeat CBC for 1 week after discharge to monitor Hgb. Subjective Date/time seen: 02/05/20 1000 Interval history: Ms. Grant is a pleasant 74yo F admitted after left total hip arthroplasty by Dr Zuniga. She is feeling well today. She denies any dizziness or lightheadedness. She denies any chest pain or shortness of breath. She has tolerated breakfast without nausea or vomiting. Review of Systems Review of Systems: Narrative: Twelve systems were reviewed with pertinent positives and negatives as per HPI. Exam Narrative: Exam Narrative: General: Female resting sitting up in bedside chair in no acute distress. HEENT: Normocephalic, EOMI, oral mucosa moist. Cardiovascular: Rate and rhythm are regular. Respiratory: Lungs clear to auscultation all ford. Non-labored breathing. Abdomen: Soft, non-tender, non-distended, bowel sounds present. Extremities: Peripheral pulses intact. Left hip mepilex intact with scant drainage. Left lower extremity is neurovascularly intact distal to the surgical site. Neuro: No focal neurological deficits. Speech is clear. Objective Data Vital Signs Vital Signs: Last Vital Signs Temp 99.3 F 02/05/20 10:06 Pulse 100 02/05/20 10:06 Resp 18 02/05/20 10:06 BP 131/49 L 02/05/20 10:06 Pulse Ox 99 02/05/20 10:06 Intake/Output Intake/Output: Intake & Output 02/02/20 02/03/20 02/04/20 02/05/20 23:59 23:59 23:59 23:59 Intake Total 540 2850 2945 1060 Output Total 320 1025 2025 900 Balance 220 1825 920 160 Meds/Results Medications: Active Medications Generic Name Dose Route Start Last Admin Trade Name Freq PRN Reason Stop Dose Admin Acetaminophen 650 mg 02/02/20 15:41 Tylenol Tablet PO Q6H PRN Mild Pain (1-3) or Fever Hydrocodone Bitart/Acetaminophen 1 tab 02/02/20 15:41 02/05/20 09:28 [place] 7.5-325 Mg PO 1 tab Q3H PRN Administration Pain Rated 4-6 Aspirin 650 mg 02/03/20 09:00 02/05/20 09:27 Aspirin Ec PO 650 mg DAILY ERNIE Administration Atorvastatin Calcium 80 mg 02/03/20 09:00 02/05/20 09:28 Lipitor PO 80 mg DAILY ERNIE Administration Calcium Carbonate 500 mg 02/03/20 09:00 02/05/20 09:28 Os-Cheikh 500 +D Tablet PO 500 mg QAM ERNIE Administration Celecoxib 200 mg 02/03/20 09:00 02/05/20 09:28 Celebrex PO 200 mg DAILY ERNIE Administration Diazepam 5 mg 02/02/20 15:41 Valium Po PO Q6H PRN
--- NOTE | 2020-02-05 15:00 | PC.NURSE ---
Report called to KATHY Gar at [facility]. All questions and concerns answered at this time.
== END 2020-02-05 16:00 | DRG 470 ==
LOC: ANHSURGERY 14:48 → ANH2MED 14:48
PROVIDERS: Anesthesiology; Nurse Practitioner Family; Physician Assistant; Admitting Provider Orthopaedic Surgery; PCP Internal Medicine; Visit Provider Orthopaedic Surgery
PROC: 0SRB04Z Replacement of Left Hip Joint with Ceramic on Polyethylene Synthetic Substitute, Open Approach (ICD-10-PCS; CPT 27130; principal; 2020-02-02 07:30)
DX: M16.32 Unilateral osteoarthritis resulting from hip dysplasia, left hip (principal); M96.662 Fracture of femur following insertion of orthopedic implant, joint prosthesis, or bone plate, left leg; M16.12 Unilateral primary osteoarthritis, left hip; M81.0 Age-related osteoporosis without current pathological fracture; Y83.8 Other surgical procedures as the cause of abnormal reaction of the patient, or of later complication, without mention of misadventure at the time of the procedure; Y79.2 Prosthetic and other implants, materials and accessory orthopedic devices associated with adverse incidents; Y92.234 Operating room of hospital as the place of occurrence of the external cause; E78.5 Hyperlipidemia, unspecified
CPT/HCPCS: 36415; 73501; 80048; 80076; 85014; 85018; 85025; 87635; 97110; 97116; 97161; 97165; 97530; 97535; A9270; C1713; C1776; C9803; J0171; J0690; J1100; J1170; J1741; J2270; J2405; J2550; J2704; J2710; J2795; J3010; J3370; J7030; J7120; U0003

== ENCOUNTER → 2021-06-12 11:10 | Outpatient (REF) | payer MEDICARE, SELFPAY | LOC: ANHLAB 11:10 | PROVIDERS: PCP Internal Medicine; Visit Provider Nurse Practitioner | DX: C44.311 Basal cell carcinoma of skin of nose (principal) | CPT/HCPCS: 88305 ==

== ENCOUNTER → 2021-08-13 09:25 | Outpatient (REF) | payer MEDICARE, SELFPAY | LOC: ANHLAB 09:25 | PROVIDERS: PCP Internal Medicine; Visit Provider Nurse Practitioner | DX: C44.311 Basal cell carcinoma of skin of nose (principal) | CPT/HCPCS: 88305; 88331 ==

== ENCOUNTER → 2022-03-19 13:05 | Outpatient (CLI) | payer MEDICARE, SELFPAY ==
--- NOTE | ~2022-03-19 | XR_ITS ---
EXAMINATION: XR hip RT min 2V DATE: 03/19/2022 13:27 INDICATION: Right hip pain. TECHNIQUE: 2 views of right hip were obtained. COMPARISON: None. FINDINGS: Bone alignment is normal. Partially visualized is a total left hip arthroplasty. There is a dvanced right hip osteoarthritis including flattening of superomedial femoral head. There is severe l umbar spondylosis. IMPRESSION: 1. Advanced right hip osteoarthritis. Reviewed, dictated and finalized at location A.
== END ==
PROVIDERS: PCP Internal Medicine; Visit Provider Nurse Practitioner
DX: M16.11 Unilateral primary osteoarthritis, right hip (principal)
CPT/HCPCS: 73502

== ENCOUNTER 2022-05-29 13:53 | Outpatient (CLI) | payer MEDICARE, SELFPAY ==
--- NOTE | 2022-05-29 14:37 | ECG_ITS ---
Measurements Intervals [place] Rate: 98 P: 7 DC: 145 QRS: -28 QRSD: 119 T: 102 QT: 358 QTc: 457 Interpretive Statements SINUS RHYTHM LEFT VENTRICULAR HYPERTROPHY AND ST-T CHANGE [VOLTAGE CRITERIA PLUS ST/T ABNORMALITY] NO PREVIOUS ECG AVAILABLE FOR COMPARISON Electronically Signed On 05-29-2022 15:34:17 CDT by Giacomo Landon M.D.
[2022-05-29 15:07] LABS: Basophils Percent Auto 0.6 % (0.2-1.2); Eosinophils Absolute Auto 0.1 K/mm3 (0-0.3); Eosinophils Percent Auto 1.8 % (0-4.4); Hematocrit 39.7 % (37.0-47.0); Hemoglobin 12.5 g/dL (12.0-15.0); Immature Granulocyte Absolute 0.01 K/mm3 (0.00-0.031); Immature Granulocyte Percent A 0.2 % (0-0.5); Lymphocytes Absolute Auto 3.01 K/mm3 (0.9-3.2); Lymphocytes Percent Auto 46.4 % (18.3-44.2); Mean Corpuscular HGB Conc 31.5 g/dl (32-36); Mean Platelet Volume 8.8 fl (7.4-10.4); Monocytes Absolute Auto 0.4 K/mm3 (0.1-0.6); Monocytes Percent Auto 5.4 % (2.6-8.5); Neutrophils Percent Auto 45.6 % (45.5-73.1); Platelet Count Result 198 k/mm3 (150-375); Red Blood Count 4.46 M/mm3 (4.2-5.4); Red Cell Distribution Width 14.6 % (11.5-14.5); White Blood Count 6.5 K/mm3 (4.5-10.0)
[2022-05-29 15:12] LABS: Add Urine Microscopic? YES; Appearance Urine Clear (Clear); Bacteria Urine Trace /hpf; Bilirubin Urine Negative (Negative); Blood Urine Negative (Negative); Color Urine Yellow (Yellow); Glucose Urine UA Negative (Negative); Ketones Urine Negative (Negative); Leukocyte Esterase Ur 2+ LEU/UL (Negative); Mucus Urine Rare /lpf; Nitrate Urine Negative (Negative); Protein Urine Negative (Negative); Specific Grav Ur 1.019 (1.001-1.035); Squamous Epithelial Cell Urine Occasional /hpf (Few); Urobilinogen Urine Negative mg/dL (<2.0)
[2022-05-29 15:17] LABS: Urine Cotinine NEGATIVE
[2022-05-29 15:20] LABS: Prothrombin Time 12.7 Seconds (11.1-14.7)
[2022-05-29 15:21] LABS: Partial Thromboplastin Time 29.4 SECONDS (22.3-36.8)
== END 2022-05-29 13:54 | disposition home or self-care (01) ==
PROVIDERS: PCP Internal Medicine; Visit Provider Orthopaedic Surgery
DX: Z01.818 Encounter for other preprocedural examination (principal); M16.11 Unilateral primary osteoarthritis, right hip; R94.31 Abnormal electrocardiogram [ECG] [EKG]
CPT/HCPCS: 80307; 81001; 85025; 85610; 85730; 87081; 93005

== ENCOUNTER 2022-06-13 16:01 | Observation (INO) | payer MEDICARE, SELFPAY ==
--- NOTE | 2022-05-29 13:30 | PC.NURSE ---
PRE-OP INSTRUCTIONS, PLEASE READ CAREFULLY Report to the Outpatient Waiting Room, entrance under the green pavilion located off [facility], at time _0600_ on date _06/12/22_. OR Time: _0730_. PACK A SMALL OVERNIGHT BAG AND LEAVE IN THE CAR ALONG WITH YOUR WALKER Time changes happen often and if your time is changed the preop area will call you the afternoon before. - You and your visitor will be asked to self-screen and do not enter if you have any COVID symptoms. - We encourage only one visitor and NO visitors under age 16 are allowed at this time. Your visitor will receive communication by the phone number that is given day of service. - The patient visitor is requested to social distance or may leave the building when not with patient due to restrictions. - A mask is required within the hospital. - VISITING HOURS 8AM-8PM Patients may have clear liquids (water, carbonated beverages, clear teas, apple juice) until 3 hours prior to surgery (0430 AM) with a maximum of 20 ounces. - No food from midnight until time of surgery Take the following medications with a SIP of water the morning of surgery: _NONE_ Medications to discontinue per DR. DUMAS - _ALEVE 7 DAYS PRIOR TO SURGERY, Date to take last dose 06/04/22_ Medications to discontinue per ANESTHESIA -_VITAMINS/SUPPLEMENTS 3 DAYS PRIOR TO SURGERY, Date to take last dose 06/08/22_ Please no make-up, nail lao, hairspray, perfume, deodorant, or body powder the day of surgery. No jewelry (including any body piercings) or valuables the day of surgery, leave them at home. Please take a shower or bath the night before, or the morning of, surgery with an antibacterial soap. Wear comfortable, loose fitting clothing. - Jewelry must be removed prior to entering the operating room. Rings and piercings that are not removed may be cut off. - The hospital will not accept responsibility for valuables. - Please leave all valuables, including medications, at home the day of surgery. If you are going home after surgery, a licensed xm1 tank driver must drive you home. - NO public transportation without another adult. - We recommend that an adult stay with you for 24 hours following discharge. - We also recommend that you do not drive, make important decision, drink alcoholic beverages, or take any drugs that were not prescribed by your health care provider for at least 24 hours after your discharge time. Follow any additional instructions given to you from your surgeon. If you or anyone in your household have experienced Covid symptoms in the past week, please notify your surgeon or the nurse liaison at the phone number below for possible testing. Instructions given to ____PT and asked if any additional questions and then verbalized understanding. Patient advised to call surgeon office or pre surgery nurse liaison [phone] if any additional questions.
[2022-05-29 14:15] VITALS: BP 164/72; PULSE 100; RESP 18; TEMP 36.9; O2SAT 100; BMI 31.2
--- NOTE | 2022-06-11 14:25 | WPDANESEPPF ---
Anes - Initial Pre Proc Eval Procedure: Operation Date: 06/12/22 07:30 Proposed Procedures p Right Total Hip Arthroplasty - Benton Zuniga MD Date/Time: 06/11/22 14:25 Surgeon: Benton Zuniga MD Pre Op Diagnosis: right hip DJD Patient Data Age: 76 Gender: F Height: 1.57 m Weight: 77.5 kg Last Vital Signs Temp 36.9 C 05/29/22 14:15 Pulse 100 05/29/22 14:15 Resp 18 05/29/22 14:15 BP 164/72 H 05/29/22 14:15 Pulse Ox 100 05/29/22 14:15 O2 Del Method Room Air 05/29/22 14:15 Allergies Allergy/AdvReac Type Severity Reaction Status Date / Time cephalexin Allergy Unknown Rash Verified 06/12/22 06:32 Cephalosporins Allergy Unknown Rash Verified 06/12/22 06:32 Home Medications Medication Instructions Recorded Confirmed Type calcium carbonate 600 mg-vitamin 1 tablet PO DAILY 09/06/19 06/12/22 History D3 20 mcg (800 unit) chewable tablet (Caltrate 600 plus D) ascorbate calcium (vitamin C) 500 500 mg PO DAILY 02/08/21 06/12/22 History mg tablet cyanocobalamin (vitamin B-12) 50 50 mcg PO DAILY 02/08/21 06/12/22 History mcg tablet (Vitamin B-12) losartan 100 mg tablet 100 mg PO DAILY #30 tabs 10/18/21 06/12/22 Rx atorvastatin 80 mg tablet See Rx Instructions .Route 04/29/22 06/12/22 Rx .COMPLEX #30 tabs naproxen sodium 220 mg tablet 220 mg BID PRN Pain 05/29/22 06/12/22 History (Aleve) chlorhexidine gluconate 4 % 1 applic topical ONCE #237 mL 06/05/22 Rx topical liquid (Hibiclens) Patient hx anesthesia problems: none Family hx anesthesia problems: none Results Review: All pre-operative results and documents have been reviewed as part of the pre-operative evaluation. [facility] Past Medical History Medical History (Updated 06/11/22 @ 14:27 by Quang Lemon MD) Basal cell carcinoma Left nasal ala, nasolabial fold, and upper lip. Chronic otitis media Degenerative joint disease of left hip Dyslipidemia Glaucoma Hearing loss History of COVID-19 IGT (impaired glucose tolerance) Obesity Osteoporosis Surgical History Surgical History History of bunionectomy History of carpal tunnel release History of cataract extraction History of dilation and curettage History of laparoscopic cholecystectomy History of lumpectomy History of total left hip arthroplasty (~01/2020) History of trabeculectomy Right eye - 12/21/18. Left eye- 06/21/19. S/P total hip arthroplasty Status post myringotomy with tube placement of both ears On multiple occasions for chronic otitis media. Family History Family History Father Family history of gallbladder disease Mother Family history of malignant neoplasm of breast in first degree relative, Onset Age: 86 Sibling Family history of malignant neoplasm Social History Social History Social History: Surrogate decision maker: Nancy Grant, daughter. Code status: Full code. Smoking status: Never smoker Second hand tobacco smoke exposure: No Additional smoking assessment comments: PT DENIES ALL FORMS OF TOBACCO USE Alcohol intake: never Alcohol use details: Occasional Substance use: never Substance use type: does not use Living arrangements: alone Additional living arrangements comments: Patient lives alone in her own home [place], [place]. Additional occupation/education comments: Retired. Gender identity (if verbalized by the patient): Female Spiritual care concerns: No Anes - Eval Final PreProcedure Day of Procedure 06/11/22 14:25 Patient weight: obese Heart: regular rate and rhythm Lungs: clear to auscultation and normal air movement Airway: Mallampati scale class II Neurological: alert and oriented Last oral intake: >/= 8 hours ASA classification: III Emergent: no Anesthetic plan: proceed Anesthesia
[2022-06-12] VITALS (15 sets, daily range): BP systolic 130–181; BP diastolic 49–84; PULSE 64–118; RESP 10–18; TEMP 36.1–36.6; O2SAT 98–100
[2022-06-12] MEDS: ACETAMINOPHEN 500 MG TABLET 1000 MG PO (07:00)
[2022-06-12] MEDS: LACTATED RINGERS 1,000 ML 30 ML IV CONT ×2 (07:00→11:20)
[2022-06-12] MEDS: TRANEXAMIC ACID 1,000MG/ISO100 1,000 MG/100 ML BAG 200 MG IVPB (07:14)
--- NOTE | 2022-06-12 07:21 | WPDHPUPDATE1 ---
History and Physical Update Update Date/Time: 06/12/22 07:21 History and Physical has been reviewed, including an updated exam of the patient. There are NO changes in the patient's condition. Risks, benefits, and alternatives have been discussed and questions answered. Patient agrees to proceed with procedure.
[2022-06-12] MEDS: ceFAZolin 2 GM/D5W 50 ML 2 GM/50 ML BAG IVPB ×3 (07:32→22:40)
[2022-06-12] MEDS: TRANEXAMIC ACID 1,000 MG/10 ML AMPUL 1000 MG IV PUSH (10:24)
--- NOTE | 2022-06-12 11:47 | W.PM.PROC2 ---
Procedure Note - Detailed Date of Procedure 06/12/22 Pre-op Diagnosis right hip DJD Post-op Diagnosis Same Procedure Performed R JORGE Surgeon Benton Zuniga MD Anesthesia General Description of Procedure THE PATIENT WAS TAKEN TO THE OPERATING ROOM IN STABLE CONDITION AND WAS PLACED IN THE LATERAL DECUBITUS AND THE RIGHT LOWER EXTREMITY WAS PREPPED AND DRAPED IN THE STERILE FASHION. INCISION WAS MADE IN THE POSTERIOR LATERAL SIDE OF THE HIP, DOWN TO THE FASCIA LAYER. THE FASCIA WAS INCISED. THE HIP WAS EXPOSED. THE SHORT EXTERNAL ROTATORS WERE EXPOSED. THE SCIATIC NERVE WAS IDENTIFIED. INCISION WAS MADE THROUGH THE SHORT EXTERNAL ROTATORS AND THE CAPSULE OF THE HIP JOINT. THE HIP WAS DISLOCATED. AN OSTEOTOMY WAS MADE TO THE FEMORAL NECK ABOUT 1 CM PROXIMAL TO THE LESSER TROCHANTER. THE ACETABULUM WAS EXPOSED. THERE WAS SEVERE DJD SEEN. BEGINNING WITH A 44 REAMER THE ACETABULUM WAS REAMED TO 49 MM. A 49 MM TRIAL WAS PLACED IN 35 DEG OF ABDUCTION AND ANTEVERSION WAS IN ALIGNMENT WITH THE TRANS ACETABULAR LIGAMENT. THE FIT WAS EXCELLENT. THE TRIAL WAS REMOVED. A 50 MM BIOMET G7 COMPONENT WAS THEN TAPPED IN TO PLACE IN 35 DEG OF ABDUCTION AND ANTEVERSION IN ALIGNMENT WITH THE TRANSVERSE ACETABULAR LIGAMENT. THE FIT WAS EXCELLENT. 3 SCREWS WERE PLACED WITH GOOD BITES. THE ACETABULAR LINER WAS PLACED AND CHECKED FOR STABILITY. NEXT THE FEMUR WAS PREPARED WITH INITIAL CANAL FINDER THEN SEQUENTIAL BROACHING WITH A TAPERLOC HIP SYSTEM, UNTIL A 7 BROACH FIT WELL IN 15 OF ANTEVERSION. A 0 HIGH OFFSET NECK WITH 36 MM HEAD TRIAL WAS PLACED. THE SHUCK TEST WAS EXCELLENT AND THE STABILITY IN FLEXION AND ROTATION WAS EXCELLENT. LEG LENGTHS WERE GROSSLY EQUAL. TRIALS WERE REMOVED. A BIOMET TAPERLOC 7 STEM WAS PLACED WITH A HIGH OFFSET NECK. THE FIT WAS EXCELLENT IN 15 DEG OF ANTEVERSION. A 0 CERAMIC 36 MM FEMORAL HEAD WAS PLACED. THE HIP WAS TRIALED AND THE STABILITY WAS EXCELLENT WERE THE LEG LENGTHS AND THE SHUCK TEST. THE WOUND WAS IRRIGATED WITH STERILE BETADINE AND WATER FOR 3 MIN. THEN WASHED AGAIN. THE SCIATIC NERVE WAS IDENTIFIED AGAIN. THE CAPSULE AND THE EXTERNAL ROTATORS WERE APPROXIMATED WITH NUMBER 1 VICRYL. THE FASCIA WITH No 2 QUIL AND THE SUB CUTANEOUS LAYER WITH 2-0 ABSORBABLE SUTURE AND A RUNNING 3-0 SUBCUTICULAR STITCH FOR THE SKIN. DERMABOND WAS PLACED AND STERILE DRESSING WAS APPLIED. PATIENT WAS PLACED BACK ON TO THE SUPINE POSITION AND WAS EXTUBATED Estimated Blood Loss -100.0 Complications No immediate complications Condition Stable Disposition PACU
[2022-06-12] MEDS: fentaNYL CITRATE INJ (*CRX) 100 MCG/2 ML VIAL 25 MCG IV PUSH ×4 (12:00→12:30)
--- NOTE | 2022-06-12 13:00 | ADMGEN ---
This patient, Gloria Grant, was admitted to Medical Room 247-. Patient/family oriented to hospital policies and general routines including ID bracelet, bed and alarms, visiting hours, pain management, procedures, bathroom and other care routines, personal items, smoking policy, room service/diet, and visiting hours. Information on how to activate the Rapid Response Team has been discussed. Patient/Family are encouraged to report perceived risks to care and to ask questions if they do not understand what they are told or what they should do.
[2022-06-12] MEDS: DEXTROSE 5%/0.45% SOD CHL 1,000 ML 80 ML IV CONT (14:19)
[2022-06-12] MEDS: ONDANSETRON INJ 4 MG/2 ML VIAL IV PUSH ×2 (14:24→20:31)
[2022-06-12] MEDS: SENNA/DOCUSATE SODIUM TABLET 2 TAB PO (16:26)
[2022-06-12] MEDS: ASPIRIN 325 MG ENTERIC TABLET PO (22:41)
--- NOTE | ~2022-06-13 | XR_ITS ---
EXAMINATION: XR hip RT min 2V DATE: 06/12/2022 11:38 INDICATION: Right total hip arthroplasty TECHNIQUE: 2 views right hip FINDINGS: There is a right total hip arthroplasty in expected position. Subcutaneous gas with soft t issue swelling are consistent with recent surgery. IMPRESSION: 1. Recent right total hip arthroplasty. Reviewed, dictated and finalized at location B.
[2022-06-13] MEDS: ONDANSETRON INJ 4 MG/2 ML VIAL IV PUSH (00:41)
[2022-06-13] MEDS: DEXTROSE 5%/0.45% SOD CHL 1,000 ML 80 ML IV CONT (03:50)
[2022-06-13 03:52] VITALS: BP 147/55; PULSE 79; RESP 16; TEMP 36.3; O2SAT 100
[2022-06-13 05:23] LABS: Basophils Percent Auto 0.1 % (0.2-1.2); Hematocrit 30.7 % (37.0-47.0); Hemoglobin 9.7 g/dL (12.0-15.0); Immature Granulocyte Absolute 0.05 K/mm3 (0.00-0.031); Immature Granulocyte Percent A 0.5 % (0-0.5); Lymphocytes Absolute Auto 2.42 K/mm3 (0.9-3.2); Lymphocytes Percent Auto 25.7 % (18.3-44.2); Mean Corpuscular HGB Conc 31.6 g/dl (32-36); Mean Corpuscular Hemoglobin 27.6 pg (26-34); Mean Corpuscular Volume 87.2 fl (80-100); Mean Platelet Volume 8.5 fl (7.4-10.4); Monocytes Absolute Auto 0.7 K/mm3 (0.1-0.6); Monocytes Percent Auto 6.9 % (2.6-8.5); Neutrophils Absolute Auto 6.3 K/mm3 (1.3-6.7); Neutrophils Percent Auto 66.8 % (45.5-73.1); Platelet Count Result 169 k/mm3 (150-375); Red Blood Count 3.52 M/mm3 (4.2-5.4); Red Cell Distribution Width 14.7 % (11.5-14.5); White Blood Count 9.4 K/mm3 (4.5-10.0)
[2022-06-13] MEDS: ceFAZolin 2 GM/D5W 50 ML 2 GM/50 ML BAG IVPB (05:35)
[2022-06-13 05:38] LABS: Anion Gap 8 mmol/L (8-16); Blood Urea Nitrogen 16 mg/dL (7-17); Calcium 8.1 mg/dL (8.4-10.2); Carbon Dioxide 26 mmol/L (22-30); Chloride 101 mmol/L (98-107); Estimated CRCL calculation 53 ml/min; Estimated Glomerular Filt Rate 54; Glucose 157 mg/dL (65-110); Potassium 4.8 mmol/L (3.4-5.0); Sodium 135 mmol/L (137-145)
[2022-06-13] MEDS: HYDROcodone/acetaminophen (*CRX) 7.5-325 MG TABLET 1 TAB PO ×2 (05:39→09:20)
--- NOTE | 2022-06-13 07:38 | P.PNAN_ITS ---
Anes - Prog Note Post-Op Date/Time: 06/13/22 07:38 Cardiovascular status: normal Respiratory status: normal Airway patency: baseline Mental status: baseline Post-Op hydration status: normal Vital Signs: Last Vital Signs Temp 36.3 C L 06/13/22 03:52 Pulse 79 06/13/22 03:52 Resp 16 06/13/22 03:52 BP 147/55 H 06/13/22 03:52 Pulse Ox 100 06/13/22 03:52 O2 Del Method Room Air 06/12/22 20:00 O2 Flow Rate 1 06/12/22 13:00 Pain Score (VAS): 09/27 I/O: Intake & Output 06/12/22 06/12/22 06/13/22 15:59 23:59 07:59 Intake Total 9740 434 3058 Output Total 150 650 Balance 1900 0 550 Laboratory Tests 06/13/22 05:00 06/13/22 05:00 06/12/22 06/13/22 06/13/22 06:53 05:00 05:00 WBC 9.4 RBC 3.52 L Hgb 9.7 L Hct 30.7 L MCV 87.2 MCH 27.6 MCHC 31.6 L RDW 14.7 H Plt Count 169 MPV 8.5 Immature Gran % (Auto) 0.5 Neut % (Auto) 66.8 Lymph % (Auto) 25.7 [place] % (Auto) 6.9 Eos % (Auto) 0.0 Baso % (Auto) 0.1 L Lymph # (Auto) 2.42 [place] # (Auto) 0.7 H Eos # (Auto) 0.0 Baso # (Auto) 0.0 Abs Immat Gran (auto) 0.05 H Absolute Neuts (auto) 6.3 Absolute Nucleated RBC 0.0 Nucleated RBC % 0.0 Sodium 135 L Potassium 4.8 Chloride 101 Carbon Dioxide 26 Anion Gap 8 BUN 16 Creatinine 1.00 Estim Creat Clear Calc 53 Estimated GFR 54 L Glucose 157 H Calcium 8.1 L Blood Type A Positive Antibody Screen Negative Post-procedural complaints: none Patient Feedback: Patient satisfied with anesthetic care.
--- NOTE | 2022-06-13 08:09 | WPDANESPN ---
Anes - Prog Note Post-Op Date/Time: 06/13/22 08:09 Cardiovascular status: normal Respiratory status: normal Airway patency: baseline Mental status: baseline Post-Op hydration status: normal Vital Signs: Last Vital Signs Temp 36.3 C L 06/13/22 03:52 Pulse 79 06/13/22 03:52 Resp 16 06/13/22 03:52 BP 147/55 H 06/13/22 03:52 Pulse Ox 100 06/13/22 03:52 O2 Del Method Room Air 06/12/22 20:00 O2 Flow Rate 1 06/12/22 13:00 Pain Score (VAS): 2 Pt nauseated throughtout the night. Urinary retention and cotto placed I/O: Intake & Output 06/12/22 06/13/22 06/13/22 23:59 07:59 15:59 Intake Total 150 1200 Output Total 150 650 Balance 0 550 Laboratory Tests 06/13/22 05:00 06/13/22 05:00 06/13/22 06/13/22 05:00 05:00 WBC 9.4 RBC 3.52 L Hgb 9.7 L Hct 30.7 L MCV 87.2 MCH 27.6 MCHC 31.6 L RDW 14.7 H Plt Count 169 MPV 8.5 Immature Gran % (Auto) 0.5 Neut % (Auto) 66.8 Lymph % (Auto) 25.7 [place] % (Auto) 6.9 Eos % (Auto) 0.0 Baso % (Auto) 0.1 L Lymph # (Auto) 2.42 [place] # (Auto) 0.7 H Eos # (Auto) 0.0 Baso # (Auto) 0.0 Abs Immat Gran (auto) 0.05 H Absolute Neuts (auto) 6.3 Absolute Nucleated RBC 0.0 Nucleated RBC % 0.0 Sodium 135 L Potassium 4.8 Chloride 101 Carbon Dioxide 26 Anion Gap 8 BUN 16 Creatinine 1.00 Estim Creat Clear Calc 53 Estimated GFR 54 L Glucose 157 H Calcium 8.1 L Post-procedural complaints: none Patient Feedback: Patient satisfied with anesthetic care.
[2022-06-13] MEDS: ASPIRIN 325 MG ENTERIC TABLET PO ×2 (09:00→21:02)
[2022-06-13] MEDS: ATORVASTATIN 40 MG TABLET BY MOUTH (09:00)
[2022-06-13] MEDS: LOSARTAN POTASSIUM 100 MG TABLET PO (09:00)
[2022-06-13 09:04] VITALS: RESP 16; O2SAT 100
--- NOTE | 2022-06-13 09:40 | PM.PNORT ---
Progress Note: A&P Assessment and Plan (1) S/P total hip arthroplasty: Qualifiers: Laterality: left Qualified Code(s): Z96.642 - Presence of left artificial hip joint Code(s): Z96.649 - Presence of unspecified artificial hip joint Status: Acute Assessment and Plan: POD #1 : Right JORGE Continue PT/OT. WBAT. Walker. HIGH FALL RISK. Continue pain control. Ice Hip. Protect skin. DVT prophylaxis with Aspirin. SCDs. Incentive Spirometry Use reviewed. Monitor Dressing. Change prior to discharge. Bowel Regimen. Dispo: Home with Home Health pending progress with PT/OT (2) Postoperative urinary retention: Code(s): N99.89 - Other postprocedural complications and disorders of genitourinary system; R33.8 - Other retention of urine Status: Acute Assessment and Plan: Postoperative urinary retention. Vicente catheter re-instered overnight. Plan for void trial again today. If unsuccessful, will consult urology. Subjective Subjective Date/Time Seen: 06/13/22 09:40 Post Op day: 1 Interval history: POD #1: Right JORGE Patient with complaints of nausea, vomiting. Urinary retention. Pain well controlled. Very concerned about discharge home. Review of Systems Review of Systems: All systems reviewed & are unremarkable except as noted in HPI and below Constitutional: Constitutional: Denies chills, Denies fever(s), Denies headache(s), Denies lethargy and Reports weakness ENT: Denies headache(s) Cardiovascular: Cardiovascular: Denies chest pain, Denies diaphoresis, Denies lightheadedness, Denies palpitations, Denies dyspnea and Denies dyspnea on exertion Respiratory: Respiratory: Denies cough, Denies dyspnea and Denies dyspnea on exertion Gastrointestinal: Gastrointestinal: Denies constipation, Denies diarrhea, Denies nausea and Denies vomiting Genitourinary: Genitourinary: Reports urinary frequency, Denies dysuria and Denies urinary hesitancy Musculoskeletal: Musculoskeletal: Reports joint swelling (Right Hip ) and Reports limited range of motion (Right Hip due to recent surgery ) Neurologic: Denies headache(s) and Reports weakness Endocrine: Endocrine: Denies palpitations Exam Const: General: comfortable and no acute distress Resp: Effort & Inspection: normal respiratory effort Cardio: Rate: regular rate Rhythm: regular rhythm GI: Inspection: non-distended Skin: General skin exam: normal color Other: Incision right hip c/d/i. Surrounding tissue without redness/warmth. Mild swelling consistent with recent surgery. No drainage. Neuro: Cognition (Neuro): normal cognition Speech: normal speech Extrem: Right lower extremity: normal to inspection, normal capillary refill, hip/thigh Details: tenderness Location: of the hip (Thigh soft ) Location: laterally and anteriorly, swelling Location: at the hip, abnormal ROM (limited consistent with recent surgery ) Details: pain with active ROM during and pain with passive ROM during and other (Incision c/d/i. ); no deformity and no unusual warmth, knee Details: normal to inspection; no tenderness and no swelling, lower leg (Negative Eloise's Sign ) Details: normal to inspection and no edema; no tenderness, ankle (+ankle dorsiflexion/plantarflexion) Details: normal to inspection and no edema; no tenderness, no swelling and no ecchymosis and foot Details: normal capillary refill, toes with normal ROM, vascular exam Details: dorsalis pedis pulse present and motor-sensory exam Details: light-touch normal; no tenderness Objective Data Vital Signs Vital Signs: Vital Signs - 24 hr 06/12/22 11:25 06/12/22 11:40 06/12/22 11:55 Temperature 36.2 C L Pulse Rate 75 73 81 Respiratory Rate 10 L 12 17 Blood Pressure 131/70 161/57 H 142/76 H Pulse Oximetry 100 100 100 Oxygen Delivery Simple Face Mask Simple Face Mask Simple Face Mask Oxygen Flow Rate 8 8 8 06/12/22 12:10 06/12/22 12:25 06/12/22 12:40 Temperature Pulse Rate 84 6
[2022-06-13 11:09] VITALS: BP 142/58; PULSE 83; RESP 18; TEMP 36.4; O2SAT 100
--- NOTE | 2022-06-13 14:14 | PC.NURSE ---
On 06/13/22, the student, [Rekha Ashford], provided care and completed [facility] documentation on this patient. I have reviewed the student's documentation and agree with the findings.
[2022-06-13] MEDS: SENNA/DOCUSATE SODIUM TABLET 2 TAB PO (16:38)
[2022-06-13 20:00] VITALS: PULSE 101; RESP 16; O2SAT 100
[2022-06-13 20:52] VITALS: BP 122/50; PULSE 101; RESP 16; TEMP 37.1; O2SAT 100
[2022-06-14 02:04] VITALS: BP 126/52; PULSE 99; RESP 14; TEMP 37.1; O2SAT 95
[2022-06-14 06:00] VITALS: BP 143/55; PULSE 100; RESP 14; TEMP 36.6; O2SAT 100
[2022-06-14 07:49] VITALS: RESP 16; O2SAT 100
[2022-06-14] MEDS: LOSARTAN POTASSIUM 100 MG TABLET PO (09:33)
[2022-06-14] MEDS: ASCORBIC ACID 500 MG TABLET PO (09:33)
[2022-06-14] MEDS: ASPIRIN 325 MG ENTERIC TABLET PO (09:33)
[2022-06-14] MEDS: ATORVASTATIN 40 MG TABLET BY MOUTH (09:33)
[2022-06-14] MEDS: CYANOCOBALAMIN 500 MCG TABLET PO (09:33)
[2022-06-14] MEDS: SENNA/DOCUSATE SODIUM TABLET 2 TAB PO ×2 (09:33→16:43)
[2022-06-14] MEDS: polyethylene glycoL 3350 17 GM POWD.PACK PO (09:34)
[2022-06-14 10:34] VITALS: BP 129/61; PULSE 95; RESP 16; TEMP 36.9; O2SAT 100
[2022-06-14 14:28] VITALS: BP 138/57; PULSE 101; RESP 16; TEMP 36.9; O2SAT 100
--- NOTE | 2022-06-14 16:49 | PM.PNORT ---
Progress Note: A&P Assessment and Plan (1) Osteoarthritis of right hip: Code(s): M16.11 - Unilateral primary osteoarthritis, right hip Status: Acute Assessment and Plan: pod 2 doing well and with pain controlled. ok to dc home and f/u in 3 weeks Subjective Subjective Date/Time Seen: 06/14/22 16:49 pod 2 doing well. she is voiding and walking well with pt Exam Extrem: Other: vss afebrile dressing dry nv intact neg homans sign, calf soft non tender. Objective Data Vital Signs Vital Signs: Vital Signs - 24 hr 06/13/22 20:52 06/13/22 20:00 06/14/22 02:04 Temperature 37.1 C 37.1 C Pulse Rate 101 H 101 H 99 Respiratory Rate 16 16 14 Blood Pressure 122/50 L 126/52 L Pulse Oximetry 100 100 95 Oxygen Delivery Room Air 06/14/22 06:00 06/14/22 07:49 06/14/22 10:34 Temperature 36.6 C 36.9 C Pulse Rate 100 95 Respiratory Rate 14 16 16 Blood Pressure 143/55 H 129/61 Pulse Oximetry 100 100 100 Oxygen Delivery Room Air 06/14/22 14:28 Temperature 36.9 C Pulse Rate 101 H Respiratory Rate 16 Blood Pressure 138/57 L Pulse Oximetry 100 Oxygen Delivery Intake/Output Intake/Output: Intake & Output 06/11/22 06/12/22 06/13/22 06/14/22 23:59 23:59 23:59 23:59 Intake Total 2050 3630 610 Output Total 150 2000 600 Balance 1900 1630 10 Meds/Results Medications: Active Medications Generic Name Dose Route Start Last Admin Trade Name Freq PRN Reason Stop Dose Admin Acetaminophen 650 mg 06/12/22 12:42 Acetaminophen 325 Mg Tablet PO Q6H PRN Mild Pain (1-3) or Fever Hydrocodone Bitart/Acetaminophen 1 tab 06/12/22 12:42 06/13/22 09:20 Hydrocodone/Acetaminophen (*Crx) 7.5-325 Mg Tablet PO 1 tab Q3H PRN Administration Pain Rated 4-6 Hydrocodone Bitart/Acetaminophen 2 tab 06/12/22 12:42 Hydrocodone/Acetaminophen (*Crx) 7.5-325 Mg Tablet PO Q6H PRN Pain Rated 7-10 Ascorbic Acid 500 mg 06/13/22 09:00 06/14/22 09:33 Ascorbic Acid 500 Mg Tablet PO 500 mg DAILY ERNIE Administration Aspirin 325 mg 06/12/22 21:00 06/14/22 09:33 Aspirin 325 Mg Enteric Tablet PO 325 mg Q12HR ERNIE Administration Atorvastatin Calcium 40 mg 06/13/22 09:00 06/14/22 09:33 Atorvastatin 40 Mg Tablet BY MOUTH 40 mg DAILY ERNIE Administration Calcium Carbonate 500 mg 06/13/22 09:00 06/14/22 09:33 Calcium/Vitamin D 500 Mg Tablet PO 07/13/22 08:59 500 mg DAILY ERNIE Administration Cyanocobalamin 500 mcg 06/13/22 09:00 06/14/22 09:33 Cyanocobalamin 500 Mcg Tablet PO 07/13/22 08:59 500 mcg DAILY ERNIE Administration Diazepam 5 mg 06/12/22 12:42 Diazepam (*Crx) 5 Mg Tablet PO Q6H PRN Anxiety/Muscle Spasm Hydroxyzine HCl 50 mg 06/12/22 12:42 Hydroxyzine Hcl 25 Mg Tablet PO Q4H PRN Itching Losartan Potassium 100 mg 06/13/22 09:00 06/14/22 09:33 Losartan Potassium 100 Mg Tablet PO 100 mg DAILY ERNIE Administration Naloxone HCl 0.1 mg 06/12/22 12:42 Naloxone Hcl 0.4 Mg/Ml Vial IV PUSH Q2M PRN Opiate Reversal Ondansetron HCl 4 mg 06/12/22 12:42 06/13/22 00:41 Ondansetron Inj 4 Mg/2 Ml Vial IV PUSH 4 mg Q4H PRN Administration Nausea And Vomiting Polyethylene Glycol 17 gm 06/13/22 09:00 06/14/22 09:34 Polyethylene Glycol 3350 17 Gm Powd.Pack PO 17 gm QAM ERNIE Administration Senna/Docusate Sodium 2 tab 06/12/22 17:00 06/14/22 16:43 Senna/Docusate Sodium Tablet PO 2 tab BID ERNIE Administration Radiology Results: ITS Impressions Hip X-Ray 06/12/22 11:40 IMPRESSION: 1. Recent right total hip arthroplasty.
--- NOTE | 2022-06-14 16:53 | PM.DS ---
DS: Admitting Diagnosis Discharge Date 06/14/22 Admitting Diagnosis right hip djd DS: Discharge Diagnosis Discharge Diagnosis (1) Osteoarthritis of right hip: Code(s): M16.11 - Unilateral primary osteoarthritis, right hip Status: Acute DS: Summary Hospital Course Hospital Course: PATIENT WAS ADMITTED S/P RIGHT TOTAL HIP ARTHROPLASTY FOR POSTOPERATIVE MEDICAL MANAGEMENT, PAIN CONTROL AND MOBILIZATION WITH PHYSICAL AND OCCUPATIONAL THERAPY. THE PATIENT PROGRESSED WELL WITH PT/OT. LABS AND VITALS REMAINED STABLE AND PAIN WELL CONTROLLED. THE PATIENT HAS BEEN CLEARED TO BE DISCHARGED HOME. FOLLOW UP APPOINTMENT SCHEDULED. DISCHARGE INSTRUCTIONS DISCUSSED AT LENGTH WITH THE PATIENT. MEDICATIONS REVIEWED. Time Spent with Patient Time attestation: Total time spent providing and/or coordinating discharge services: DS: Data Procedures/Treatments: R JORGE Discharge Plan Discharge Attending physician on discharge: Benton Zuniga Discharging Clinician: Benton Zuniga Patient Disposition: Home Health Service Activity: may shower Diet: as tolerated Wound Care Instructions: keep dressing dry Discharge Instructions: Post Op Total Hip Replacement Instructions Dr. Benton Zuniga [phone] Your dressing will be changed prior to your discharge. You will be sent home with one additional dressing to be changed on post op day 7 by the home health RN. You may remove the dressing on post op day 14. Your incision was closed with dermabond, allow the dermabond to fall off naturally once your dressing is removed. Do not pull at the dermabond or disrupt incision healing. You may shower with your dressing but do not submerge in a bath tub. Do not drive or operate machinery until you are released by Dr. Zuniga. Do not walk without a walker for any reason until you are released by Dr. Zuniga. Continue to apply ice to the hip intermittently for additional pain relief. Protect your skin with a towel or pillow case. Continue to follow strict total hip replacement precautions. Your first post op appointment was sent to you via mail preoperatively. If you have any questions or are unable to make your appointment, please contact our office for scheduling questions. Your medications have been sent to your pharmacy. You have been sent home with pain medication. We have also sent you with a stool softener as narcotics can cause constipation. Please keep this in mind during your postoperative recovery. If you are not experiencing regular bowel movements, please contact our office for further instructions. Please contact our office with any questions/concerns regarding your hip at [phone]. Per Care Coordination: Patient to have [facility] for RN/PT/OT eval and treat [phone]. They will contact patient to arrange first visit. Patient Instructions: Antibiotic Form Stand Alone Forms: General Discharge Information Follow-up/Referrals: Benton Zuniga MD [Physician] - 3 Weeks Discharge Medications: New aspirin 325 mg Tablet,Delayed Release (Dr/Ec) 325 mg PO Q12HR 30 Days Qty: 60 0RF hydrocodone-acetaminophen 7.5-325 mg Tablet 1 tablet PO Q4-6H PRN (Reason: pain) Qty: 56 0RF hydrocodone-acetaminophen 7.5-325 mg tablet 1 tablet PO Q8H PRN (Reason: pain) Qty: 30 0RF Continued Caltrate 600 plus D 600 mg (1,500 mg)-800 unit tablet,chewable 1 tablet PO DAILY Label Comments: QAM ascorbate calcium (vitamin C) 500 mg tablet 500 mg PO DAILY Label Comments: QAM Vitamin B-12 50 mcg tablet 50 mcg PO DAILY Label Comments: QAM losartan 100 mg tablet 100 mg PO DAILY Qty: 30 5RF Label Comments: QAM atorvastatin 80 mg tablet See Rx Instructions .ROUTE .COMPLEX Qty: 30 5RF Dose Instruction: TAKE 1 TABLET BY MOUTH EVERY DAY Label Comments: QAM Rx Instructions: TAKE 1 TABLET BY MOUTH EVERY DAY
== END 2022-06-14 17:45 | disposition home health service (06) ==
LOC: ANHSURGERY 16:03 → ANH2MED 16:03
PROVIDERS: Admitting Provider Orthopaedic Surgery; PCP Internal Medicine; Visit Provider Orthopaedic Surgery
PROC: (CPT 27130; principal; 2022-06-12 07:30)
DX: M16.11 Unilateral primary osteoarthritis, right hip (principal); N99.89 Other postprocedural complications and disorders of genitourinary system; R33.8 Other retention of urine; Z96.0 Presence of urogenital implants; E78.5 Hyperlipidemia, unspecified; H40.9 Unspecified glaucoma; H91.90 Unspecified hearing loss, unspecified ear; R73.02 Impaired glucose tolerance (oral); E66.9 Obesity, unspecified; M81.0 Age-related osteoporosis without current pathological fracture; F10.90 Alcohol use, unspecified, uncomplicated; Z79.1 Long term (current) use of non-steroidal anti-inflammatories (NSAID); Z96.642 Presence of left artificial hip joint; Z79.899 Other long term (current) drug therapy
CPT/HCPCS: 27447; 36415; 73502; 80048; 85025; 86850; 86900; 86901; 97110; 97116; 97161; 97165; 97530; 97535; A9270; C1713; C1776; G0378; J0131; J0171; J0690; J1100; J1170; J1885; J2250; J2270; J2405; J2704; J2710; J2795; J3010; J7120

== ENCOUNTER 2022-12-27 03:18 | Day surgery (SDC) | payer MEDICARE, SELFPAY ==
[2022-12-13 14:05] VITALS: BMI 30.6
--- NOTE | 2022-12-26 17:11 | PM.HPGS ---
History of Present Illness History of Present Illness Consent: Risks, benefits, and alternatives have been discussed and questions answered. Patient agrees to proceed with procedure. Chief complaint: neoplasm screening Narrative: Gloria Grant is a 77 year old female Referred for colon cancer screening. Her sister had colon cancer. Review of Systems Review of Systems: All systems reviewed & are unremarkable except as noted in HPI and below PMFSH Past Medical History Medical History Basal cell carcinoma Left nasal ala, nasolabial fold, and upper lip. Chronic otitis media Degenerative joint disease of left hip Dyslipidemia Glaucoma Hearing loss History of COVID-19 IGT (impaired glucose tolerance) Obesity Osteoporosis Postoperative urinary retention Surgical History Surgical History History of bunionectomy History of carpal tunnel release History of cataract extraction History of dilation and curettage History of laparoscopic cholecystectomy History of lumpectomy History of total left hip arthroplasty (~01/2020) History of trabeculectomy Right eye - 12/21/18. Left eye- 06/21/19. S/P total hip arthroplasty Rt JORGE 06/12/22 Status post myringotomy with tube placement of both ears On multiple occasions for chronic otitis media. Family History Family History Father Family history of gallbladder disease Mother Family history of malignant neoplasm of breast in first degree relative, Onset Age: 86 Sibling Family history of malignant neoplasm Social History Social History Social History: Surrogate decision maker: Nancy Grant, daughter. Code status: Full code. Smoking status: Never smoker Second hand tobacco smoke exposure: No Alcohol intake: never Substance use: never Substance use type: does not use Lack of Transportation: No Lack of Food: Never True Current Housing: I Have Housing Concerned About Future Housing: No Difficulty Paying Gas/Electric Bills: No Difficulty Paying for Meds: No Currently Unemployed: No Education: Bachelor's Degree Difficulty w/ Childcare or Family Care: No Living arrangements: alone Additional living arrangements comments: Patient lives alone in her own home [place], [place]. Additional occupation/education comments: Retired. Gender identity (if verbalized by the patient): Female Sexual Orientation (if Verbalized by the Patient): Straight or Heterosexual Spiritual care concerns: No Meds Home Medications and Allergies Home Medications Medication Instructions Recorded Confirmed Type calcium carbonate 600 mg-vitamin 1 tablet PO DAILY 09/06/19 12/13/22 History D3 20 mcg (800 unit) chewable tablet (Caltrate 600 plus D) ascorbate calcium (vitamin C) 500 500 mg PO DAILY 02/08/21 12/13/22 History mg tablet cyanocobalamin (vitamin B-12) 50 50 mcg PO DAILY 02/08/21 12/13/22 History mcg tablet (Vitamin B-12) losartan 100 mg tablet 100 mg PO DAILY #30 tabs 10/18/21 12/13/22 Rx aspirin 325 mg tablet,delayed 325 mg PO Q12HR 30 days #60 tabs 06/13/22 12/13/22 Rx release atorvastatin 80 mg tablet See Rx Instructions .Route 11/01/22 12/13/22 Rx .COMPLEX #30 tabs Allergies Allergy/AdvReac Type Severity Reaction Status Date / Time cephalexin Allergy Unknown Rash Verified 12/27/22 08:21 Cephalosporins Allergy Unknown Rash Verified 12/27/22 08:21 Exam Const: General: alert Orientation/consciousness: patient oriented x3 Resp: Auscultation: clear to auscultation bilaterally Cardio: Rate: tachycardic Rhythm: regular rhythm GI: GI Palp: Yes Soft to palpation and No Tenderness to palpation present (GI) Neuro: General: patient oriented x3 Assessment and Plan Assessment and plan
[2022-12-27 08:22] VITALS: BP 171/75; PULSE 129; RESP 20; TEMP 36.4; O2SAT 99
[2022-12-27] MEDS: LACTATED RINGERS 1,000 ML 150 ML IV CONT (08:36)
--- NOTE | 2022-12-27 08:40 | SUR.PREOP ---
Spoke with Dr. Lemon regarding patient HR 130. Put leads on patient and printed a cardiac strip. Per Dr. Lemon, will proceed with procedure.
[2022-12-27] MEDS: SIMETHICONE ORAL SUSPENSION 20 MG/0.3 ML 30 ML BOTTLE 0.6 ML IRRIGATION (09:11)
[2022-12-27 09:20] VITALS: BP 115/60; PULSE 91; RESP 24; O2SAT 100
[2022-12-27 09:30] VITALS: BP 145/84; PULSE 97; RESP 28; O2SAT 99
[2022-12-27 09:40] VITALS: BP 156/74; PULSE 79; RESP 24; O2SAT 100
== END 2022-12-27 10:45 | disposition home or self-care (01) ==
PROVIDERS: PCP Internal Medicine; Visit Provider Internal Medicine Gastroenterology
PROC: 0DJD8ZZ Inspection of Lower Intestinal Tract, Via Natural or Artificial Opening Endoscopic (ICD-10-PCS; CPT 45378; principal; 2022-12-27 09:30)
DX: Z12.11 Encounter for screening for malignant neoplasm of colon (principal); K57.30 Diverticulosis of large intestine without perforation or abscess without bleeding; K64.8 Other hemorrhoids; Z80.0 Family history of malignant neoplasm of digestive organs; E78.5 Hyperlipidemia, unspecified; M81.0 Age-related osteoporosis without current pathological fracture; H40.9 Unspecified glaucoma; Z79.82 Long term (current) use of aspirin
CPT/HCPCS: G0105; J2704; J3370; J7120

== ENCOUNTER 2024-05-31 13:04 | Outpatient (CLI) | payer MEDICARE, SELFPAY ==
--- NOTE | ~2024-05-31 | CT_ITS ---
Non-contrast Head CT History: Aphasia Technique: Axial non-contrast imaging of the brain was performed. Dose reduction technique was used on this scan by utilizing automated exposure control and iterative reconstruction technique. The dose -length product (DLP) was 599.57 mGy-cm. Findings: There is no evidence of intracranial hemorrhage, mass lesion, or acute infarct. Brain par enchyma appears normal. The ventricles and subarachnoid spaces are normal in size. The calvarium ap pears normal. The visualized paranasal sinuses and mastoid air cells are clear. Impression: No significant abnormality seen. Reviewed, dictated and finalized at location . Impression: No significant abnormality seen.
== END 2024-05-31 13:05 | disposition home or self-care (01) ==
LOC: MICIMG 13:05
PROVIDERS: PCP Internal Medicine; Visit Provider Nurse Practitioner
DX: R47.01 Aphasia (principal)
CPT/HCPCS: 70450

== ENCOUNTER 2024-11-01 10:17 | Outpatient (CLI) | payer MEDICARE, SELFPAY ==
--- OUTSIDE RECORDS SUMMARY | 2024-11-01 12:11 | XMS_ITS | Clinical Summary ---
Author Organization [facility] Address [address] [place] [address] Care Team Providers Care Roving Hauler Name Role Phone Unavailable Primary Care Provider Unavailabl e Social History Tobacco Use Types Packs/Day Years Used Date Smoking Tobacco: Never Assessed Comments Unknown Sex and Gender Information Value Date Recorded Sex Assigned at Not on file Legal Sex Female 8:32 PM CDT Gender Identity Not on file Sexual Orientation Not on file Plan of Treatment Health Maintenance Due Date Last Done Comments Hepatitis C 1963 DTaP, Tdap and Td Vaccines ( 1 - Tdap) 1965 Zoster Vaccines (1 of 2) 1996 Dexa Scan (General) 12/17/2011 Pneumococcal Vaccine: 65+ Ye ars (1 of 1 - PCV) 12/17/2011 RSV Immunization or 60+ Years (1 - 1-dose 75+ series) 2021 COVID-19 Vaccine (2023-2 5 season) 2024 Influenza Adult (#1) 2024 Meningococcal B Vaccine Aged Out No l onger eligible based on patient's age to complete this topic Meningococcal Vaccine Aged Out No raheel keyanna eligible based on patient's age to complete this topic RSV Immunizations Under 20 Months Aged Out No longer eligible based on patient's age to complete this topic
--- NOTE | 2024-11-02 12:11 | WPDNEUROLOGY ---
Neurology EEG Report General Information Date of Study: 11/01/24 TEST eeg DIAGNOSIS Dementia CONDITION OF RECORDING awake and drowsy and sleep. EEG NUMBER [id number]. CLINICAL HISTORY Patient reports she has been having issues with finding correct words and speaking clearly for the last several months. EEG DESCRIPTION Basic resting occipital frequency consists of low-voltage 15 to 18 hertz per 2nd beta activity admixed with multiple movement artifacts. Poor anteroposterior gradient is noted. Low-voltage beta activity seen admixed with theta activity during drowsiness followed by bilateral symmetrical sleep activity with normal and symmetrical sleep spindles. Hyperventilation not done. Photic stimulation produced poor drive. Non paroxysmal. Nonfocal. Nonlateralizing. IMPRESSION No significant abnormalities noted particularly there is no evidence of any paroxysmal activity or focal slowing in 1 or other hemisphere. Again clinical correlation recommended this particular tracing does not rule out the possibility of the ongoing dementia or seizures.
== END 2024-11-01 10:18 | disposition home or self-care (01) ==
LOC: ANHNEURO 10:20
PROVIDERS: PCP Internal Medicine; Visit Provider Psychiatry & Neurology Neurology
DX: F03.90 Unspecified dementia, unspecified severity, without behavioral disturbance, psychotic disturbance, mood disturbance, and anxiety (principal)
CPT/HCPCS: 95816

== ENCOUNTER 2024-11-01 12:37 | Outpatient (CLI) | payer MEDICARE, SELFPAY ==
--- NOTE | ~2024-11-01 | MR_ITS ---
MRI of the brain Clinical History: Multiple sclerosis Technique: Axial and sagittal T1-weighted images were acquired. These were followed by axial T2-weigh dang, diffusion weighted, gradient, and FLAIR images. Following intravenous administration of 14 cc ProHance gadolinium, T1-weighted fat-sat imaging was pe rformed in the axial and coronal planes. Findings: No acute infarct, intracranial hemorrhage or mass lesion seen. There are multiple focal FLA IR hyperintense signal lesions in the periventricular white matter bilaterally. Ventricles and subarachnoid spaces are mildly dilated. Orbits are unremarkable. Paranasal sinuses and mastoid air cells are clear. Major intracranial flow voids are intact. Sagittal midline structures are intact. No abnormal postcontrast enhancement identified. IMPRESSION: Multiple focal white matter lesions, as above. Diagnostic considerations include chronic microvascula r ischemic change versus possibly demyelinating disease/multiple sclerosis. Reviewed, dictated and finalized at location . IMPRESSION: Multiple focal white matter lesions, as above. Diagnostic considerations includ e chronic microvascular ischemic change versus possibly demyelinating disease/m ultiple sclerosis.
== END 2024-11-01 12:38 | disposition home or self-care (01) ==
LOC: MICIMG 12:39
PROVIDERS: PCP Internal Medicine; Visit Provider Psychiatry & Neurology Neurology
DX: G35 Multiple sclerosis (principal); G31.01 Pick's disease; F02.80 Dementia in other diseases classified elsewhere, unspecified severity, without behavioral disturbance, psychotic disturbance, mood disturbance, and anxiety
CPT/HCPCS: 70553; A9579

== ENCOUNTER 2025-03-22 11:00 | Outpatient (RCR) | payer MEDICARE, SELFPAY ==
--- NOTE | 2025-01-05 12:22 | OPREHPOC ---
Outpatient Therapy Plan of Care This is a Multidisciplinary Plan of Care that may contain components documented by all disciplines (PT, OT, and ST.) ST Problem 1 ST Problem #[address] Goal 1 Goal / Goal Update Patient will participate in home programming to improve carry over/generalization of skills to home environment. Target Visit 6 ST Goal 1 Goal / Goal Update Verbal Expression: 1. Patient will apply compensatory speech/language techniques to sentence level material with 85% accuracy minimal cues 2. Patient will state/recall compensatory speech/ language strategies. 3. Patient will apply compensatory speech/language techniques in simple conversation exchanges 4-5 with 85% accuracy minimal cues. Target Visit 10 ST Goal 2 Goal / Goal Update Memory: 1. Patient will utilize memory strategies for delayed recall of 2-3 sentence length material 2-3 detail recall with 85% accuracy and minimal cues. 2. Patient will recall/state memory strategies. Target Visit 10
--- NOTE | 2025-01-05 12:22 | STOPEVAL1 ---
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 The patient reports her greatest frustration is her change in speech quality. She has reduced interacting with others and phone use due to the time required to formulate her speech clearly. The patient was assessed for both cognitive and language deficits. Upon completing the evaluation results indicated mild cognitive deficits for memory recall specifically of delayed information and mildly delayed auditory processing for spoken information. Patient 's word finding ability appears at a functional level at this time. However, the patient had mild- moderate difficulty formulating her responses in a fluid and timely manner when attempting to provide lengthy responses to questions. The speech therapist did probe the use of speech/language techniques for improving the patient's overall fluency with good success. The speech therapist and patient reviewed evaluation results, discussed treatment plan, and compensatory techniques. Plan of Care Interventions Treatment of Speech,Treatment of Language ST Services Indicated Yes Treatment Frequency and 1x a week x 10 visits. Duration These treatments will address the objective and functional deficits as defined above. The patient will be advanced safely and appropriately in order for the patient to progress towards his/her prior level of function. Additional exercises will be introduced and as well as a comprehensive home exercise program upon discharge, if needed, ?to ensure carryover of functional gains achieved in the clinic. This treatment plan has been reviewed and agreement upon by the patient.
--- NOTE | 2025-03-08 12:41 | OPREHPOC ---
Outpatient Therapy Plan of Care This is a Multidisciplinary Plan of Care that may contain components documented by all disciplines (PT, OT, and ST.) ST Problem 1 ST Problem #[address] Goal 1 Goal / Goal Update Patient will participate in home programming to improve carry over/generalization of skills to home environment. Updated 03-08-25: Goal Met Target Visit [address] Problem 2 ST Problem #[address] Goal 1 Goal / Goal Update Verbal Expression: 1. Patient will apply compensatory speech/language techniques to sentence level material with 85% accuracy minimal cues Update 03-08-25: Goal Met sentence level 85% minimal cues 2. Patient will state/recall compensatory speech/ language strategies. Update 03-08-25: Goal Met patient able to state and recall speech techniques for improved fluency of speech 3. Patient will apply compensatory speech/language techniques in simple conversation exchanges 4-5 with 85% accuracy minimal cues. Update 03-08-25: Goal Met applying techniques with 4-5 simple exchanges 85% and minimal cues. Target Visit [address] Goal 2 Goal / Goal Update New Goals 03-08-25: 1. Patient will state 10-15 items for everyday categories with 85% minimal cues 2. Patient will complete complex word-finding tasks(Object comparison, synonyms, picture description) with 85% minimal cues 3. patient will participate in complex conversation exchanges 5-7 with 855 fluent responses using compensatory techniques and minimal cues. Target Visit [address] Problem #[address] Goal 1 Goal / Goal Update Memory: 1. Patient will utilize memory strategies for delayed recall of 2-3 sentence length material 2-3 detail recall with 85% accuracy and minimal cues. Updated Goal 03-08-25: Recall 2-3 sentence length 2 -3 details 85% minimal cues: Goal Met 2. Patient will recall/state memory strategies. Updated Goal 03-08-25: Goal Met patient able to recall memory strategies. Target Visit [address] Goal 2 Goal / Goal Update 1. The patient will recall moderately complex paragraph length material (3 details) using compensatory techniques with 85% minimal cues Target Visit [address] Problem #[address] Goal 1 Goal / Goal Update Reasonin. The patient will complete written deductive reasoning tasks with 80% and minimal cues. Target Visit 10
--- NOTE | 2025-03-08 12:41 | STOPREEVAL ---
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 Since onset patient has become increasing frustrated with difficulty with fluent speech output. She reports reducing her interactions with others and phone use due to the challenges conversational exchange presents. She is being seen today 03/08/25 for a reevaluation of her speech and language to determine if additional treatment is indicated. She reports she had a follow-up visit with her primary care physician 03/01/25 and he is recommending continued treatment based on her progress since his last office visit. 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 Since onset patient has become increasing frustrated with difficulty with fluent speech output. She reports reducing her interactions with others and phone use due to the challenges conversational exchange presents. She is being seen today 03/08/25 for a reevaluation of her speech, language, and cognition to determine if additional treatment is indicated. She reports she had a follow-up visit with her primary care physician 03/01/25 and he is recommending continued treatment based on her progress since his last office visit. The patient was assessed for both cognitive and language deficits. Upon completing the reevaluation results noted improved verbal expression and word retrieval with object function naming increased from 85 to 1005, sentence formulation improving from 80%-90%, divergent naming increased rom 4-5 items per category to 10 items per simple category, and fluency improving at the simple conversation level to fluent 80% of the time. In addition: Memory recall for simple paragraphs improved from 70% to 100%. Difficulty at the complex paragraph length information recall level improved from 50% to 70%. Auditory processing improved with complex information from 75% to 87% accuracy. The patient has made noted progress with all goals. Goals adjusted to advancing recall with complex material, add goals for deductive reasoning, and increase complexity of word retrieval tasks. Recommend 1x a week every other week for 10 visits. Plan of Care Interventions Treatment of Language,Treatment for Cognitive Function ST Services Indicated Yes Treatment Frequency and 1x a week every other week for 10 visits. Duration These treatments will address the objective and functional deficits as defined above. The patient will be advanced safely and appropriately in order for the patient to progress towards his/her prior level of function. Additional exercises will be introduced and as well as a comprehensive home exercise program upon discharge, if needed, ?to ensure carryover of functional gains achieved in the clinic. This treatment plan has been reviewed and agreement upon by the patient.
== END 2025-04-05 23:59 | disposition home or self-care (01) ==
LOC: ANHST 11:00
PROVIDERS: PCP Internal Medicine; Visit Provider Psychiatry & Neurology Neurology
DX: R47.01 Aphasia (principal); F02.80 Dementia in other diseases classified elsewhere, unspecified severity, without behavioral disturbance, psychotic disturbance, mood disturbance, and anxiety
CPT/HCPCS: 92507; 92523

== ENCOUNTER 2025-03-29 13:14 | Outpatient (CLI) | payer MEDICARE, SELFPAY ==
--- NOTE | ~2025-03-29 | US_ITS ---
EXAMINATION: US carotid duplex BI DATE: 03/29/2025 14:03 INDICATION: Aphasia TECHNIQUE: Grayscale, color Doppler, and pulsed Doppler images of the cervical carotid arteries were obtained. The degree of vessel stenosis is placed in one of the following categories: normal, <50%, 5 0-69%, >=70% but less than near-occlusion, near-occlusion, or total occlusion. Note that percent sten osis relative to normal distal artery lumen diameter is indirectly measured from velocity measurement s as described by Hector, et al. Radiology 2003; 229:[id number]. Notes: Normal: Peak systolic velocity <125 centimeters/sec and no plaque <50%. Peak systolic velocity <125 ( EDV <40; ICA/CCA PSV ratio <2.0; used these factors only a tandem lesions or low cardiac output or co ntralateral disease) 50-69 %: PSV 125-230 (EDV 40-100; ratio 2-4) >= 70% but less than near occlusion: PSV greater than 230 (EDV > 100; ratio> 4.0) Near Occlusion: PSV that is variable; markedly narrowed lumen Occlusion: Absent flow on color/spectral Doppler and no lumen on lew scale. COMPARISON: None. FINDINGS: RIGHT: The right common carotid artery (CCA) peak systolic velocity (PSV) is 53 cm/s. The right internal car otid artery (ICA) PSV is 87 cm/s. The right ICA end-diastolic velocity (EDV) is 15 cm/s. The right IC A/CCA PSV ratio is 1.6. The external carotid artery (ECA) PSV is 84 cm/s. There is antegrade flow in the right vertebral artery. LEFT: The left CCA PSV is 65 cm/s. The left ICA PSV is 63 cm/s. The left ICA EDV is 17 cm/s. The left ICA/C CA PSV ratio is 1.0. The ECA PSV is 74 cm/s. There is antegrade flow in the left vertebral artery. M ultiple enlarged left cervical lymph nodes, likely reactive. IMPRESSION: 1. Less than 50% stenosis in the right internal carotid artery by sonographic criteria. 2. Less than 50% stenosis in the left internal carotid artery by sonographic criteria. Reviewed, dictated and finalized at location A. IMPRESSION: 1. Less than 50% stenosis in the right internal carotid artery by sonographic c adan. 2. Less than 50% stenosis in the left internal carotid artery by sonographic denzel yates.
--- OUTSIDE RECORDS SUMMARY | 2025-03-29 13:05 | XMS_ITS | Clinical Summary ---
Author Organization [facility] Address [address] [place] [address] Care Team Providers Care Clam Picker Name Role Phone Unavailable Primary Care Provider [...] Td Vaccines ( 1 - Tdap) 1964 Pneumococcal Vaccine: 50+ Ye ars (1 of 1 - PCV) 1996 Zoster Vaccines (1 of 2) 1996 Dexa Scan (General) 12/17/2011 RSV Immunization or 60+ Years (1 - 1-dose 75+ series) 2021 COVID-19 Vaccine (2023-2 5 season) 2024 Meningococcal B Vaccine Aged Out No l onger eligible based on patient's age to complete this topic Meningococcal Vaccine Aged Out No raheel keyanna eligible based on patient's age to complete this topic RSV Immunizations Under 20 Months Aged Out No longer eligible based on patient's age to complete this topic
[2025-03-29 15:30] LABS: Vitamin B12 > 1000.0 pg/mL (239-931)
[2025-04-05 08:08] LABS: 1,25-Dihydroxy, Vitamin D-2 22 pg/mL (.); 1,25-Dihydroxy, Vitamin D-3 44 pg/mL (.); Total 1,25-Dihydroxy,Vitamin D 66 pg/mL (.)
[2025-04-07 03:07] LABS: A -- Beta-amyloid 42/40 Ratio 0.110 (>0.102); Beta-amyloid 40 165.58 pg/mL (.); Beta-amyloid 42 18.26 pg/mL (.); N -- NfL, Plasma 5.32 pg/mL (0.00-6.04); T -- p-tau181 1.76 pg/mL (0.00-0.97)
== END 2025-03-29 13:15 | disposition home or self-care (01) ==
PROVIDERS: PCP Internal Medicine; Visit Provider Psychiatry & Neurology Neurology
DX: G31.01 Pick's disease (principal); G31.84 Mild cognitive impairment of uncertain or unknown etiology; Z87.828 Personal history of other (healed) physical injury and trauma; E55.9 Vitamin D deficiency, unspecified
CPT/HCPCS: 36415; 82607; 82652; 83090; 83520; 93880

== ENCOUNTER 2025-06-14 11:00 | Outpatient (RCR) | payer MEDICARE, SELFPAY ==
--- NOTE | 2025-06-14 11:57 | STOPDC ---
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 Since onset patient has become increasing frustrated with difficulty with fluent speech output. She reports reducing her interactions with others and phone use due to the challenges conversational exchange presents. She is being seen today 03/08/25 for a reevaluation of her speech, language, and cognition to determine if additional treatment is indicated. She reports she had a follow-up visit with her primary care physician 03/01/25 and he is recommending continued treatment based on her progress since his last office visit. The patient was assessed for both cognitive and language deficits. Upon completing the reevaluation results noted improved verbal expression and word retrieval with object function naming increased from 85 to 1005, sentence formulation improving from 80%-90%, divergent naming increased rom 4-5 items per category to 10 items per simple category, and fluency improving at the simple conversation level to fluent 80% of the time. In addition: Memory recall for simple paragraphs improved from 70% to 100%. Difficulty at the complex paragraph length information recall level improved from 50% to 70%. Auditory processing improved with complex information from 75% to 87% accuracy. The patient has made noted progress with all goals. Goals adjusted to advancing recall with complex material, add goals for deductive reasoning, and increase complexity of word retrieval tasks. Recommend 1x a week every other week for 10 visits. Updated 06/14/25 Discharge: Upon discharge the patient is completing word retrieval at a functional level 85-90% all goals established. Producing fluent speech at conversation level 85% fluent responses using compensatory techniques. Memory recall for moderately complex paragraph information 90-100% accuracy for recall. Abstract reasoning for daily scenarios with 90% accuracy. The patient was provided with additional HEP(Home exercise Program ) to continue following discharge for maintaining skills. Thanks you for the consult Plan of Care ST Services Indicated No
== END 2025-06-28 11:00 | disposition home or self-care (01) ==
LOC: ANHST 11:00
PROVIDERS: PCP Internal Medicine; Visit Provider Psychiatry & Neurology Neurology
DX: R47.01 Aphasia (principal); F02.80 Dementia in other diseases classified elsewhere, unspecified severity, without behavioral disturbance, psychotic disturbance, mood disturbance, and anxiety
CPT/HCPCS: 92507